=== PATIENT | female | born 1990 | race Caucasian/White ===

== ENCOUNTER 2019-12-22 11:00 | Emergency (ER) | payer OTHER, SELFPAY ==
--- NOTE | 2019-12-22 11:14 | ED.ABDPAIN ---
HPI - Abdominal Pain General Chief Complaint: Allergic Reaction <Enmanuel Pritchard PA-C - Last Filed: 12/22/19 12:20> Stated Complaint: hives <Enmanuel Pritchard PA-C - Last Filed: 12/22/19 12:20> Time Seen by Provider: 12/22/19 11:02 <Enmanuel Pritchard PA-C - Last Filed: 12/22/19 12:20> Source: patient <Enmanuel Pritchard PA-C - Last Filed: 12/22/19 12:20> Mode of arrival: ambulatory <Enmanuel Pritchard PA-C - Last Filed: 12/22/19 12:20> Limitations: no limitations <Enmanuel Pritchard PA-C - Last Filed: 12/22/19 12:20> History of Present Illness HPI narrative: Patient is a 29-year-old female who presents to emergency department for evaluation of hives that is been present for the last 6 days has been taking Zyrtec with minimal improvement notes itching patient denies known exposure believes it could be related to bleach that they were cleaning with at the laundromat patient denies URI symptoms difficulty swallowing or breathing or other complaints and on arrival is resting comfortably in the room in no distress <Enmanuel Pritchard PA-C - Last Filed: 12/22/19 12:20> Related Data Allergies/Adverse Reactions: Allergies Allergy/AdvReac Type Severity Reaction Status Date / Time adhesive tape Allergy Unknown Unknown Verified 12/22/19 11:36 latex Allergy Unknown Unknown Verified 12/22/19 11:36 LAVENDER OIL Allergy Severe SOB Uncoded 04/10/19 16:36 <Enmanuel Pritchard PA-C - Last Filed: 12/22/19 12:20> Review of Systems Review of Systems: All systems reviewed & are unremarkable except as noted in HPI and below <Enmanuel Pritchard PA-C - Last Filed: 12/22/19 12:20> PMF Past Medical History Medical History: Medical History Anxiety Pseudoseizures <Enmanuel Pritchard PA-C - Last Filed: 12/22/19 12:20> Family History Family History: Family History (Updated 05/11/14 @ 07:13 by DOCTOR UNKNOWN) Grandparent Hypertension Family history of elevated blood lipids Carcinoma of colon Diabetes mellitus Mother Cerebrovascular accident <Enmanuel Pritchard PA-C - Last Filed: 12/22/19 12:20> Social History Social History: Social History Smoking status: Never smoker Tobacco type: e-cigarettes Alcohol intake: never Gender identity (if verbalized by the patient): Female <Enmanuel Pritchard PA-C - Last Filed: 12/22/19 12:20> Exam Narrative: Exam Narrative: GENERAL: Well-appearing, well-nourished, and in no acute distress. HEAD: Normocephalic, atraumatic. EYES: PERRLA and EOMI. ENT: Nares clear, no rhinorrhea or epistaxis. Mucous membranes moist. Oropharynx without tonsillar hypertrophy exudate or other lesions. No angioedema in the oropharynx NECK: Supple. No adenopathy or masses. No stridor CHEST: Clear to auscultation. No respiratory distress. No wheezes rales or rhonchi HEART: Regular rate and rhythm. No murmur heard. EXTREMITIES: Normal range of motion. No edema. SKIN: Warm, dry, patient with scattered small hives NEURO: No focal deficits. Alert and oriented x3. PSYCH: Normal mood and affect. <RACHEL Nina Last Filed: 12/22/19 12:20> Course Course Emergency Course: Patient in the room in no distress aware of case findings treatment plan and diagnosis <Enmanuel Pritchard PA-C - Last Filed: 12/22/19 12:20> Vital Signs Vital signs: Vital Signs Temperature 36.4 C L 12/22/19 11:32 Pulse Rate 102 H 12/22/19 11:32 Respiratory Rate 22 H 12/22/19 11:32 Blood Pressure 121/84 12/22/19 11:32 Pulse Oximetry 100 12/22/19 11:32 Temperature 36.4 C L 12/22/19 11:32 Pulse Rate 99 12/22/19 12:27 Respiratory Rate 12 12/22/19 12:27 Blood Pressure 120/68 12/22/19 12:27 Pulse Oximetry 99 12/22/19 12:27 <Enmanuel Pritchard PA-C - Last Filed: 12/22/19 12:20> Vital Signs Temperature 36.4 C
[2019-12-22 11:32] VITALS: BP 121/84; PULSE 102; RESP 22; TEMP 36.4; O2SAT 100
[2019-12-22] MEDS: FAMOTIDINE 20 MG TABLET PO (11:37)
[2019-12-22] MEDS: predniSONE 20 MG TABLET 40 MG PO (11:37)
[2019-12-22 12:27] VITALS: BP 120/68; PULSE 99; RESP 12; O2SAT 99
== END 2019-12-22 12:28 | disposition home or self-care (01) ==
PROVIDERS: Emergency Provider Emergency Medicine
DX: L50.9 Urticaria, unspecified (principal); F17.290 Nicotine dependence, other tobacco product, uncomplicated
CPT/HCPCS: 99283; A9270; J7512

== ENCOUNTER 2020-06-07 10:55 | Emergency (ER) | payer OTHER, SELFPAY ==
--- NOTE | ~2020-06-07 | XR_ITS ---
EXAMINATION: XR wrist RT min 3V EXAM DATE: 06/07/2020 11:28 INDICATION: Initial encounter following injury, with pain of the right wrist. TECHNIQUE: Right wrist frontal, frontal with ulnar deviation, oblique and lateral projections obtain ed and reviewed. There is no prior study for comparison. FINDINGS: Right wrist scapholunate joint space is maintained. There are no acute fractures or disloca tions identified. There is no subcutaneous gas. The soft tissue is unremarkable. There are no rad iopaque foreign bodies. IMPRESSION: 1. Unremarkable XR wrist RT min 3V exam. Reviewed, dictated and finalized at location B.
[2020-06-07 11:01] VITALS: BP 124/61; PULSE 118; RESP 20; TEMP 36.9; O2SAT 97
--- NOTE | 2020-06-07 11:12 | ED.UPPEXIN ---
HPI - Extremity Injury (Upper) General Chief Complaint: Extremity Injury, Upper Stated Complaint: right hand pain Time Seen by Provider: 06/07/20 11:12 Source: patient and RN notes reviewed History of Present Illness HPI narrative: Patient is a 30-year-old female who presents the urgent care with complaints of right wrist pain and into the palm. Patient states that 1 week ago she got angry and slammed her fist on the countertop. Patient states that she has not noticed any swelling but has become more painful in the last couple days. States that she has been using Tylenol and ibuprofen. No other acute complaints. No acute distress noted. Patient aware of the plan of care. Some parts of this dictation were generated by voice recognition software and may contain typographical and/or grammatical inaccuracies. Related Data Home Medications Medication Instructions Recorded Confirmed No Home Medications 06/07/20 06/07/20 Allergies Allergy/AdvReac Type Severity Reaction Status Date / Time adhesive tape Allergy Intermediate Rash Verified 06/07/20 11:15 latex Allergy Intermediate Rash Verified 06/07/20 11:15 lavender (Lavandula Allergy Intermediate Wheezing Verified 06/07/20 11:15 angustifolia) Review of Systems Review of Systems: Narrative: CONSTITUTIONAL: Denies fever, chills, or sweats. EYES: Denies visual changes, redness, or discharge. ENT: Denies rhinorrhea, congestion, sore throat, or otalgia. CARDIOVASCULAR: Denies chest pain, palpitations, or edema. RESPIRATORY: Denies cough or dyspnea. GASTROINTESTINAL: Denies abdominal pain, nausea, vomiting, or diarrhea. GENITOURINARY: Denies dysuria or hematuria. SKIN: Denies rash or itching. MUSCULOSKELETAL: Reports of right wrist/palm pain NEUROLOGIC: Denies headache, numbness, or weakness. All other systems reviewed are negative, except as documented in HPI. [facility] Family History Family History (Updated 05/11/14 @ 07:13 by DOCTOR UNKNOWN) Grandparent Hypertension Family history of elevated blood lipids Carcinoma of colon Diabetes mellitus Mother Cerebrovascular accident Social History Social History Smoking status: Never smoker Tobacco type: e-cigarettes/vaping Alcohol intake: never Gender identity (if verbalized by the patient): Female Comments At the time of my signature, I reviewed and agree with the nursing past medical, surgical, social, and family history. There is no relevant family history pertinent to the patient complaint. Exam Narrative: Exam Narrative: GENERAL: This is a well-nourished, well-developed patient, in no apparent distress. HEAD: normocephalic, atraumatic. EYES: PERRL. Sclera clear/white. Vision is grossly intact. EARS: External ears normal NOSE: External nose normal with no obvious nasal discharge, nares without redness, no rhinorrhea. THROAT: Mucous membranes moist NECK: Neck supple SKIN: warm, intact with no suspicious lesions or rash, good texture and turgor. NEURO: awake, alert, and oriented to person, place and time. There were no obvious focal neurologic abnormalities. EXTREMITIES: Mild to moderate tenderness to the ulnar aspect of the right wrist. Positive strong right radial pulse with capillary refill less than 2 seconds. Mild pain with rotation and flexion of the right wrist. No obvious deformity, ecchymosis or edema noted to the right upper extremity. Patient is right-hand dominant. Course Vital Signs Vital signs: Vital Signs Temperature 98.4 F 06/07/20 11:01 Pulse Rate 118 H 06/07/20 11:01 Respiratory Rate 06/07/20 11:01 Blood Pressure 124/61 06/07/20 11:01 Pulse Oximetry 97 06/07/20 11:01 Temperature 98.4 F 06/07/20 11:01 Pulse Rate 118 H 06/07/20 11:01 Respiratory Rate 06/07/20 11:01 Blood Pressure 124/61 06/07/20 11:01 Pulse Oximetry 97 06/07/20 11:01 Reviewed MDM - Extremity Injury (Upper) MDM Na
== END 2020-06-07 11:44 | disposition home or self-care (01) ==
PROVIDERS: Emergency Provider Nurse Practitioner Family
DX: S60.211A Contusion of right wrist, initial encounter (principal); W22.8XXA Striking against or struck by other objects, initial encounter
CPT/HCPCS: 73110; 99213; G0463

== ENCOUNTER 2021-02-25 12:17 | Emergency (ER) | payer OTHER, SELFPAY ==
[2021-02-25 12:22] VITALS: BP 127/76; PULSE 98; RESP 16; TEMP 37.3; O2SAT 100
--- NOTE | 2021-02-25 12:51 | ED.GENADULT ---
HPI - General Adult General Chief complaint: Skin/Abscess/Foreign Body Stated complaint: left leg red sharmin Time Seen by Provider: 02/25/21 12:44 Source: patient and RN notes reviewed Mode of arrival: ambulatory Limitations: no limitations History of Present Illness HPI narrative: 31-year-old female presents with complaints of redness, warmth, tenderness, and swelling to left leg for the past 2 days. Elvira reports increase redness, swelling, and tenderness with muscle soreness. No treatment. Denies radiation of tenderness, redness, or swelling. No exacerbating factors. Denies open areas or drainage. Denies fever or chills. Denies nausea, vomiting, and abdominal pain. Tolerating po intake well. LMP 2 weeks ago. Remains active. The patient reports she has not been diagnosed with COVID-19. The patient reports she received 2 [employer] COVID-19 vaccines. The patient reports she is not waiting for the results of a COVID-19 lab test. The patient reports she does not have weakness or fatigue. The patient reports she does not have a new or worsening cough or shortness of breath. Denies chest pain. The patient reports she does not have any rhinorrhea, congestion, sore throat, loss of taste or smell, and diarrhea. Denies recent traveling. Denies concerns for COVID-19 or exposures. At this time, the patient is not suspected of having COVID-19. Some parts of this dictation were generated by voice recognition software and may contain typographical and/or grammatical inaccuracies. Related Data Allergies Allergy/AdvReac Type Severity Reaction Status Date / Time adhesive tape Allergy Intermediate Rash Verified 02/25/21 12:35 latex Allergy Intermediate Rash Verified 02/25/21 12:35 lavender (Lavandula Allergy Intermediate Wheezing Verified 02/25/21 12:35 angustifolia) cephalexin AdvReac Intermediate Weakness Verified 02/25/21 12:40 Review of Systems Review of Systems: Narrative: CONSTITUTIONAL: Denies fever, chills, sweats. EYES: Denies visual changes, redness, discharge. ENT: Denies rhinorrhea, congestion, sore throat, otalgia. CARDIOVASCULAR: Denies chest pain, palpitations, edema. RESPIRATORY: Denies dyspnea, wheezing, cough. GASTROINTESTINAL: Denies abdominal pain, nausea, vomiting, diarrhea. GENITOURINARY: Denies dysuria, hematuria, abnormal discharge. SKIN: Complaints of redness, warmth, tenderness, and swelling to left leg with muscle soreness. MUSCULOSKELETAL: Denies acute back pain, joint pain, or myalgia. NEUROLOGIC: Denies numbness or focal weakness. PSYCHIATRIC: Denies anxiety or depression. All systems reviewed & are unremarkable except as noted in HPI and below. PMFSH Past Medical History Medical History (Updated 03/04/21 @ 10:45 by ZAIDA Spear) Anxiety Depression Kidney stones Pseudoseizures Vaginal delivery X4 Surgical History Surgical History (Updated 03/04/21 @ 10:45 by ZAIDA Spear) History of cholecystectomy History of tubal ligation Family History Family History Grandparent Hypertension Family history of elevated blood lipids Carcinoma of colon Diabetes mellitus Mother Cerebrovascular accident Social History Social History (Updated 03/04/21 @ 10:46 by ZAIDA Spear) Smoking status: Never smoker Tobacco type: e-cigarettes/vaping Alcohol intake: current Substance use: current Substance use type: does not use Living arrangements: with family Occupation/Education: unemployed Gender identity (if verbalized by the patient): Female Sexual Orientation (if Verbalized by the Patient): Straight or Heterosexual Comments At time of signature, agree with the nurse past medical, surgical, social, and family history. There is no relevant family history pertinent to the presenting complaint. Exam Narrative: Exam Narrative: GENERAL: This is a well-nourished, well-developed patient, in
== END 2021-02-25 13:00 | disposition home or self-care (01) ==
PROVIDERS: Emergency Provider Nurse Practitioner Family
DX: L03.116 Cellulitis of left lower limb (principal); S80.862A Insect bite (nonvenomous), left lower leg, initial encounter; W57.XXXA Bitten or stung by nonvenomous insect and other nonvenomous arthropods, initial encounter
CPT/HCPCS: 99213; G0463

== ENCOUNTER 2021-04-16 19:37 | Emergency (ER) | payer OTHER, SELFPAY ==
--- NOTE | ~2021-04-16 | XR_ITS ---
EXAMINATION: XR hip LT 2V w AP pelvis DATE: 04/16/2021 20:41 INDICATION: Left hip pain. Fall. TECHNIQUE: An anteroposterior view of the pelvis and 2 views of left hip were obtained. COMPARISON: None. FINDINGS: Bone alignment is normal. No fracture. The hip joint spaces are normal. IMPRESSION: 1. No fracture. Reviewed, dictated and finalized at location A. IMPRESSION: 1. No fracture.
--- NOTE | ~2021-04-16 | XR_ITS ---
EXAMINATION: XR foot LT 2V DATE: 04/16/2021 20:40 INDICATION: Left foot injury and pain. TECHNIQUE: 2 views of left foot were obtained. COMPARISON: Left ankle radiographs 05/23/2019 FINDINGS: Bone alignment is normal. No fracture. Joint spaces are well maintained. There are enthesop hytes at the posterior and plantar aspects of calcaneal tuberosity. IMPRESSION: 1. No fracture. Reviewed, dictated and finalized at location A. IMPRESSION: 1. No fracture.
[2021-04-16 19:39] VITALS: BP 121/87; PULSE 110; RESP 16; TEMP 37; O2SAT 99
--- NOTE | 2021-04-16 21:01 | ED.BACK ---
HPI - Back Pain/Injury General Chief Complaint: Back Pain/Injury Stated Complaint: back pain Time Seen by Provider: 04/16/21 20:19 History of Present Illness HPI Narrative: Patient presents after a mechanical fall a couple days ago. She denies striking her head or any loss of consciousness. She rested at home in bed for the past 2 days her symptoms got worse so she went to come in for evaluation. She is having difficult time walking due to the pain she is given a shot of Toradol in route by EMS and is reporting large improvement in symptoms. She denies any bowel or bladder incontinence she denies any IV drug use she denies any major change in weight Related Data Allergies Allergy/AdvReac Type Severity Reaction Status Date / Time adhesive tape Allergy Intermediate Rash Verified 02/25/21 12:35 latex Allergy Intermediate Rash Verified 02/25/21 12:35 lavender (Lavandula Allergy Intermediate Wheezing Verified 02/25/21 12:35 angustifolia) cephalexin AdvReac Intermediate Weakness Verified 02/25/21 12:40 Review of Systems Review of Systems: CONSTITUTIONAL: Denies fever, chills, or sweats. EYES: Denies visual changes, redness, or discharge. ENT: Denies rhinorrhea, congestion, sore throat, or otalgia. CARDIOVASCULAR: Denies chest pain, palpitations, or edema. RESPIRATORY: Denies cough or dyspnea. GASTROINTESTINAL: Denies abdominal pain, nausea, vomiting, or diarrhea. GENITOURINARY: Denies dysuria or hematuria. SKIN: Denies rash or itching. MUSCULOSKELETAL: Reports low back pain left greater than right reports left hip pain and left toe pain NEUROLOGIC: Denies headache, numbness, dizziness, or weakness. PSYCHIATRIC: Denies anxiety or depression. All systems reviewed & are unremarkable except as noted in HPI and below PMFSH Past Medical History Medical History Anxiety Depression Kidney stones Pseudoseizures Vaginal delivery X4 Surgical History Surgical History (Updated 03/04/21 @ 10:45 by ZAIDA Spear) History of cholecystectomy History of tubal ligation Family History Family History Grandparent Hypertension Family history of elevated blood lipids Carcinoma of colon Diabetes mellitus Mother Cerebrovascular accident Social History Social History (Updated 03/04/21 @ 10:46 by ZAIDA Spear) Smoking status: Never smoker Tobacco type: e-cigarettes/vaping Alcohol intake: current Substance use: current Substance use type: does not use Gender identity (if verbalized by the patient): Female Exam Narrative: GENERAL: Well-appearing, well-nourished, and in no acute distress. HEAD: Normocephalic, atraumatic. EYES: PERRLA and EOMI. ENT: Nares clear, no rhinorrhea or epistaxis. Mucous membranes moist. Oropharynx without tonsillar hypertrophy exudate or other lesions. Bilateral TMs pearly [place] nonbulging NECK: Supple. No JVD or midline neck pain ABDOMEN: Soft, nontender, nondistended, normal active bowel sounds. EXTREMITIES: Normal range of motion. No edema. There is no midline low back pain there is pain along the left paraspinal area from L1-L5 there is mild diffuse pain on the left hip. There is moderate pain on palpation of the third digit on the left foot. There is ecchymosis noted on the left knee there is no obvious deformity there is no open or draining wounds SKIN: Warm, dry, no rash. NEURO: 5 out of 5 strength in bilateral lower extremities with sensation intact to light touch. Alert and oriented x3. PSYCH: Normal mood and affect. Course Reevaluation(s) Reevaluation #1: Patient continues to feel well given her Toradol shot. Reviewed with patient Date: 04/16/21 Time: 21:03 Vital Signs Vital signs: Vital Signs Temperature 37.0 C 04/16/21 19:39 Pulse Rate 110 H 04/16/21 19:39 Respiratory Rate 16 04/16/21 19:39 Blood Pressure 121/87 04/16/21 19:39
== END 2021-04-16 21:30 | disposition home or self-care (01) ==
PROVIDERS: Emergency Provider Emergency Medicine
DX: S39.012A Strain of muscle, fascia and tendon of lower back, initial encounter (principal); S80.02XA Contusion of left knee, initial encounter; W19.XXXA Unspecified fall, initial encounter; F41.9 Anxiety disorder, unspecified; F32.9 Major depressive disorder, single episode, unspecified
CPT/HCPCS: 73502; 73620; 99284

== ENCOUNTER 2021-04-22 19:39 | Emergency (ER) | payer OTHER, SELFPAY ==
--- NOTE | ~2021-04-22 | CT_ITS ---
EXAMINATION: CT abdomen pelvis w con DATE: 04/23/2021 02:27 INDICATION: Left-sided abdominal pain, left flank pain. Nausea, vomiting, diarrhea. TECHNIQUE: Computed tomography (CT) of the abdomen and pelvis was performed with 100 cc Omnipaque 350 intravenous contrast. Automated exposure control and iterative reconstruction technique were employe d. Exam dose: 453.57 mGy-cm total exam DLP. COMPARISON: None FINDINGS: Patchy infiltrates in the lower lung zones involving middle lobe, lingula and both lower lo bes. Heart size is normal. No pericardial or pleural effusion. Status post cholecystectomy. The liver, spleen, pancreas, adrenal glands and kidneys are unremarkable . Normal caliber of the abdominal aorta. No intraperitoneal or retroperitoneal or pelvic mass lesion or adenopathy or ascites. No apparent urinary tract calculus or hydroureteronephrosis. Normal caliber of the abdominal aorta. No intraperitoneal or retroperitoneal or pelvic mass lesion or adenopathy or ascites. Small fat-containing umbilical hernia. The uterus and adnexal areas and urinary bladder are unremarkable. Normal appendix. No bowel obstruction, bowel wall thickening, pneumatosis or intraperitoneal free air . Included skeletal structures are unremarkable. IMPRESSION: Patchy infiltrates in the lower lung zones suggesting bilateral pneumonia Status post cholecystectomy Normal appendix No urinary tract calculus or hydroureteronephrosis Reviewed, dictated and finalized at Location [facility]. Reviewed, dictated and finalized at location A. IMPRESSION: Patchy infiltrates in the lower lung zones suggesting bilateral pn eumonia Status post cholecystectomy Normal appendix No urinary tract calculus or hydroureteronephrosis
--- NOTE | ~2021-04-22 | XR_ITS ---
EXAMINATION: XR chest 2V DATE: 04/23/2021 00:01 INDICATION: Weakness and chest tightness. TECHNIQUE: frontal and lateral views of the chest were obtained. COMPARISON: Chest radiograph dated 06/01/2016 FINDINGS: Subtle opacities in the right mid and bilateral lower lung zones suspicious for pneumonia. No pleural effusion or pneumothorax. The cardiomediastinal silhouette is normal. Visualized bones and soft tiss ues are unremarkable. IMPRESSION: 1. Subtle opacities in the right mid and bilateral lower lung zones suspicious for pneumonia. Reviewed, dictated and finalized at location A.
[2021-04-22 19:49] VITALS: BP 104/80; PULSE 115; RESP 16; TEMP 37.7; O2SAT 97
--- NOTE | 2021-04-22 19:54 | ECG_ITS ---
Measurements Intervals [place] Rate: 124 P: 28 [place]: 140 QRS: 57 QRSD: 86 T: -2 QT: 336 QTc: 483 Interpretive Statements SINUS TACHYCARDIA MINIMAL Q WAVES- ANTEROLAT/INF LEADS NONSPECIFIC T-WAVE ABNORMALITY- INFERIOR LEADS ABNORMAL ECG Electronically Signed On 04-22-2021 20:06:22 CDT by Alistair Carlisle D.O.
[2021-04-22 20:19] LABS: Hematocrit 40.2 % (37.0-47.0); Hemoglobin 13.6 g/dL (12.0-15.0); Immature Granulocyte Absolute 0.01 K/mm3 (0.00-0.031); Immature Granulocyte Percent A 0.3 % (0-0.5); Lymphocytes Percent Auto 24.8 % (18.3-44.2); Mean Corpuscular HGB Conc 33.8 g/dl (32-36); Mean Corpuscular Hemoglobin 29.2 pg (26-34); Mean Corpuscular Volume 86.3 fl (80-100); Mean Platelet Volume 10.6 fl (7.4-10.4); Monocytes Absolute Auto 0.2 K/mm3 (0.1-0.6); Monocytes Percent Auto 6.2 % (2.6-8.5); Neutrophils Absolute Auto 2.2 K/mm3 (1.3-6.7); Neutrophils Percent Auto 68.7 % (45.5-73.1); Platelet Count Result 125 k/mm3 (150-375); Red Blood Count 4.66 M/mm3 (4.2-5.4); Red Cell Distribution Width 12.1 % (11.5-14.5); White Blood Count 3.2 K/mm3 (4.5-10.0)
[2021-04-22 20:27] LABS: Anion Gap 13 mmol/L (8-16); Blood Urea Nitrogen 12 mg/dL (7-17); Calcium 8.9 mg/dL (8.4-10.2); Carbon Dioxide 22 mmol/L (22-30); Chloride 96 mmol/L (98-107); Estimated CRCL calculation 129 ml/min; Estimated Glomerular Filt Rate > 60; Glucose 96 mg/dL (65-110); Potassium 3.4 mmol/L (3.4-5.0); Sodium 131 mmol/L (137-145)
--- NOTE | 2021-04-22 23:57 | ED.GENADULT ---
HPI - General Adult General Chief complaint: Weakness Stated complaint: chest tightness/ back spasms/ passing out Time Seen by Provider: 04/22/21 23:45 Source: patient and RN notes reviewed Mode of arrival: ambulatory Limitations: no limitations History of Present Illness HPI narrative: This is a 31 year old female with history of pseudoseizure, bipolar who presents for evaluation of left flank pain and chest pain. Patient was evaluated here at [facility] on 04/16/21 after a fall on her left side. She states states she was given Toradol in ED and she was discharged with Toradol and cyclobenzaprine. She states the next day she developed left flank pain and chest pain. She reports tightness and pressure on her chest. This pain is constant. She went to [facility] on that day and she states she was told her pain was due to the prescribed medications. Although she states they didn't do anything for her and she states she left without discharge. She reports today she is still having chest pain and weakness. She has back to her back . She reports nausea and emesis x 1. She also reports diarrhea. She has subjective fever and chills. She denies runny nose or sore throat. She is unvaccinated. Related Data Allergies Allergy/AdvReac Type Severity Reaction Status Date / Time adhesive tape Allergy Intermediate Rash Verified 02/25/21 12:35 latex Allergy Intermediate Rash Verified 02/25/21 12:35 lavender (Lavandula Allergy Intermediate Wheezing Verified 02/25/21 12:35 angustifolia) cephalexin AdvReac Intermediate Weakness Verified 02/25/21 12:40 Review of Systems Review of Systems: All systems reviewed & are unremarkable except as noted in HPI and below PMFSH Past Medical History Medical History Anxiety Depression Kidney stones Pseudoseizures Vaginal delivery X4 Surgical History Surgical History History of cholecystectomy History of tubal ligation Family History Family History Grandparent Hypertension Family history of elevated blood lipids Carcinoma of colon Diabetes mellitus Mother Cerebrovascular accident Social History Social History (Updated 03/04/21 @ 10:46 by ZAIDA Spear) Smoking status: Never smoker Tobacco type: e-cigarettes/vaping Alcohol intake: current Substance use: current Substance use type: does not use Gender identity (if verbalized by the patient): Female Exam Const: General: no acute distress and alert Orientation/consciousness: patient oriented x3 Eyes: EOM: EOMs intact bilaterally Chest: Chest palpation & inspection: tenderness Resp: Effort & Inspection: normal respiratory effort and no retractions Auscultation: clear to auscultation bilaterally GI: GI Palp: Yes Soft to palpation, Yes Tenderness to palpation present (GI) (LUQ, LLQ) and No Guarding due to palpation present (GI) Auscultation: normal bowel sounds : General: Yes CVA tenderness bilateral Skin: General skin exam: normal color Rashes: no rashes Neuro: General: patient oriented x3, moves all extremities and CN's II-XI intact bilaterally Psych: Mental Status: mental status grossly normal Affect: normal affect Course Reevaluation(s) Reevaluation #1: PAtient was sleeping with pulse oximetry 96% on room air. I discussed with her lungs on CT shows she likely has covid. Date: 04/23/21 Time: 03:46 Vital Signs Vital signs: Vital Signs Temperature 99.9 F H 04/22/21 19:49 Pulse Rate 115 H 04/22/21 19:49 Respiratory Rate 16 04/22/21 19:49 Blood Pressure 104/80 04/22/21 19:49 Pulse Oximetry 97 04/22/21 19:49 Temperature 99.9 F H 04/22/21 19:49 Pulse Rate 78 04/23/21 04:10 Respiratory Rate 14 04/23/21 04:10 Blood Pressure 128/74 04/23/21 04:10 Pulse Oximetry 97 04/23/21 04:10
[2021-04-23] VITALS (9 sets, daily range): BP systolic 94–128; BP diastolic 58–74; PULSE 78–107; RESP 14–18; O2SAT 93–97
[2021-04-23] MEDS: ONDANSETRON INJ 4 MG/2 ML VIAL IV PUSH (00:23)
[2021-04-23] MEDS: SODIUM CHLORIDE 0.9% IV 1,000 ML 999 ML IV CONT (00:23)
[2021-04-23] MEDS: PANTOPRAZOLE SODIUM IV 40 MG VIAL IV PUSH (00:23)
[2021-04-23 00:45] LABS: INR 0.9; Prothrombin Time 11.8 Seconds (11.1-14.7)
[2021-04-23 00:46] LABS: Partial Thromboplastin Time 32.1 SECONDS (22.3-36.8)
[2021-04-23 00:48] LABS: D Dimer 0.39 ug/mL (<0.48)
[2021-04-23 01:00] LABS: Lactic Acid Reflex 0.8 mmol/L (0.7-2.1)
[2021-04-23 01:02] LABS: Alanine Aminotransferase 34 U/L (4-35); Albumin Level 4.3 g/dL (3.5-5.1); Alkaline Phosphatase 73 U/L (38-126); Aspartate Amino Transferase 44 U/L (14-36); Bilirubin,Total 0.5 mg/dL (0.2-1.3); CRP 5.9 mg/dL (<1.0); Creatine Kinase 59 U/L (30-135); Magnesium 1.9 mg/dL (1.6-2.3)
[2021-04-23 01:12] LABS: Troponin I < 0.012 ng/mL (0.000-0.034)
[2021-04-23 01:39] LABS: Add Urine Microscopic? YES; Amphetamine Screen Urine Negative (Negative); Appearance Urine Clear (Clear); Bacteria Urine Trace /hpf; Barbiturate Screen Urine Negative (Negative); Benzodiazepines Screen Urine Negative (Negative); Bilirubin Urine Negative (Negative); Blood Urine 2+ (Negative); Cannabinoid Screen Urine Negative (Negative); Cocaine Screen Urine Negative (Negative); Color Urine Yellow (Yellow); Glucose Urine UA Negative (Negative); Ketones Urine 2+ mg/dL (Negative); Leukocyte Esterase Ur Negative LEU/UL (Negative); Methadone Screen Urine Negative (Negative); Mucus Urine Heavy /lpf; Nitrate Urine Negative (Negative); Opiate Screen Urine Negative (Negative); Phencyclidine Screen Urine Negative (Negative); Protein Urine 2+ mg/dL (Negative); Squamous Epithelial Cell Urine Few /hpf (Few); Urobilinogen Urine Negative mg/dL (<2.0); WBC Urine 0-3 /hpf
[2021-04-23 01:47] LABS: Specific Grav Ur 1.032 (1.001-1.035)
[2021-04-23] MEDS: DOXYCYCLINE HYCLATE 100 MG TABLET PO (04:08)
[2021-04-23 17:39] LABS: SARS-CoV-2 RNA PCR Positive
== END 2021-04-23 04:10 | disposition home or self-care (01) ==
PROVIDERS: Emergency Medicine; Emergency Provider General Practice
DX: U07.1 COVID-19 (principal); J12.82 Pneumonia due to coronavirus disease 2019; M79.10 Myalgia, unspecified site; Z87.442 Personal history of urinary calculi; F17.290 Nicotine dependence, other tobacco product, uncomplicated
CPT/HCPCS: 36415; 71046; 74177; 80048; 80076; 80307; 81001; 81025; 82550; 83605; 83735; 84484; 85025; 85055; 85380; 85610; 85730; 86140; 93005; 96361; 96374; 96375; 99284; A9270; C9113; C9803; J0131; J2405; J7030; Q9967; U0003; U0005

== ENCOUNTER 2021-06-10 11:15 | Emergency (ER) | payer OTHER, SELFPAY ==
[2021-06-10 11:35] VITALS: BP 116/69; PULSE 100; RESP 18; TEMP 36.9; O2SAT 99
[2021-06-10 11:49] VITALS: BP 116/69; PULSE 100; RESP 18; TEMP 36.9; O2SAT 99
--- NOTE | 2021-06-10 15:03 | ED.SKABFB ---
HPI - Skin/Abscess/Foreign Bdy General Chief complaint: Skin/Abscess/Foreign Body Stated complaint: Skin complaint Time Seen by Provider: 06/10/21 14:53 Source: patient and RN notes reviewed Mode of arrival: ambulatory Limitations: no limitations History of Present Illness HPI narrative: Patient presents today with a 2-day history of cystic acne to the right lower cheek. States it is very painful and red and is growing larger. Patient has applied Prid Salve at home, which has helped bring the area more to the skin surface. Patient was on doxycycline last month for pneumonia. Related Data Allergies Allergy/AdvReac Type Severity Reaction Status Date / Time adhesive tape Allergy Intermediate Rash Verified 06/10/21 11:43 latex Allergy Intermediate Rash Verified 06/10/21 11:43 lavender (Lavandula Allergy Intermediate Wheezing Verified 06/10/21 11:43 angustifolia) cephalexin AdvReac Intermediate Weakness Verified 06/10/21 11:43 Review of Systems Review of Systems: CONSTITUTIONAL: Denies body aches, fever, chills, or sweats. EYES: Denies visual changes, redness, or discharge. ENT: Denies rhinorrhea, congestion, sore throat, or otalgia. CARDIOVASCULAR: Denies chest pain, palpitations, or edema. RESPIRATORY: Denies cough or dyspnea. GASTROINTESTINAL: Denies abdominal pain, nausea, vomiting, or diarrhea. GENITOURINARY: Denies dysuria or hematuria. SKIN: Denies rash, itching. + Redness and swelling to the right lower cheek MUSCULOSKELETAL: Denies back pain, joint pain, or myalgia. NEUROLOGIC: Denies headache, numbness, tingling, or weakness. PSYCH: Denies depression or anxiety. [facility], [facility] Past Medical History Medical History Anxiety Depression Kidney stones Pseudoseizures Vaginal delivery X4 Surgical History Surgical History History of cholecystectomy History of tubal ligation Family History Family History Grandparent Hypertension Family history of elevated blood lipids Carcinoma of colon Diabetes mellitus Mother Cerebrovascular accident Social History Social History (Reviewed 06/11/21 @ 08:09 by Kailey Monterroso, [facility], ) Smoking status: Never smoker Tobacco type: e-cigarettes/vaping Alcohol intake: current Substance use: current Substance use type: does not use Gender identity (if verbalized by the patient): Female Sexual Orientation (if Verbalized by the Patient): Straight or Heterosexual Comments At time of signature, I have reviewed and agree with nursing past medical, surgical, social and family history unless otherwise noted. Please see nursing chart for further information. There is no relevant family history pertinent to the presenting complaint Exam Narrative: GENERAL: Well-appearing, well-nourished, and in no acute distress. HEAD: Normocephalic, atraumatic. EYES: EOMI. No redness or drainage. Conjunctivae normal. ENT: Mucous membranes pink and moist. Nares clear. NECK: Normal AROM. CHEST: No respiratory distress. EXTREMITIES: Normal range of motion. No edema. SKIN: Warm, dry, no rash. Capillary refill normal. Normal skin turgor. 3 to 4 cm area of erythema and induration to the right lower cheek with pinpoint scab in the center. Very tender to palpation. Patient would barely let me touch the area. Unable to assess fluctuance. NEURO: No focal deficits. Alert and oriented x3. Gait steady. PSYCH: Normal affect. No signs of depression or anxiety. Course Vital Signs Vital signs: Vital Signs Temperature 98.4 F 06/10/21 11:35 Pulse Rate 100 06/10/21 11:35 Respiratory Rate 18 06/10/21 11:35 Blood Pressure 116/69 06/10/21 11:35 Pulse Oximetry 99 06/10/21 11:35 Temperature 98.4 F 06/10/21 11:49 Pulse Rate 100 06/10/21 11:49 Respiratory Rate 18 06/10/21 11:49
--- NOTE | 2021-06-10 20:04 | PC.NURSE ---
1140 following vital signs pt asks nurse how long she will be here stating she has a chiropractor appointment at 1230. informed there are several patients for the provider to see in front her. states she will leave at this time and come back after her appointment. observed cheerful in no distress.
--- NOTE | 2021-06-10 20:13 | PC.NURSE ---
1515 pt returned to facility
--- NOTE | 2021-06-10 20:20 | PC.NURSE ---
1200 following triage pt asks how long it will be before provider sees her stating she has a chiropractor appointment at 1230. informed there are several patients in front of her to be seen. states she will leave at this and come back after her appointment.
--- NOTE | 2021-06-10 20:24 | PC.NURSE ---
1445 pt returns to facility, placed in room, no change in status.
== END 2021-06-10 15:15 | disposition home or self-care (01) ==
PROVIDERS: Emergency Provider Nurse Practitioner
DX: L03.211 Cellulitis of face (principal)
CPT/HCPCS: 99213; G0463

== ENCOUNTER 2021-12-18 09:07 | Emergency (ER) | payer OTHER, SELFPAY ==
[2021-12-18 09:11] VITALS: BP 126/84; PULSE 103; RESP 16; TEMP 36.9; O2SAT 98
--- NOTE | 2021-12-18 09:42 | ED.URI ---
HPI - URI/Sore Throat General Chief Complaint: Upper Respiratory Infection Stated Complaint: Headache/Sore Throat/Cough Time Seen by Provider: 12/18/21 09:28 Source: patient and RN notes reviewed Mode of arrival: ambulatory Limitations: no limitations History of Present Illness HPI Narrative: Patient presents today complaining of body aches, headache, cough, congestion, fatigue, chest tightness. Symptoms began yesterday. Denies fever or shortness of breath. Patient has been taking Excedrin and Tylenol Sinus without relief. Patient has been around a friend that tested positive for influenza. Patient has not had a flu shot, but has been vaccinated against COVID-19. MD elicited complaint: cough and nasal congestion Related Data Home Medications Medication Instructions Recorded Confirmed No Home Medications 12/18/21 12/18/21 Allergies Allergy/AdvReac Type Severity Reaction Status Date / Time adhesive tape Allergy Intermediate Rash Verified 12/18/21 09:24 latex Allergy Intermediate Rash Verified 12/18/21 09:24 lavender (Lavandula Allergy Intermediate Wheezing Verified 12/18/21 09:24 angustifolia) cephalexin AdvReac Intermediate Weakness Verified 12/18/21 09:24 STEROIDS AdvReac Severe Agitated Uncoded 12/18/21 09:24 Review of Systems Review of Systems: CONSTITUTIONAL: Denies fever, chills, or sweats.+ Body aches, fatigue EYES: Denies visual changes, redness, or discharge. ENT: Denies rhinorrhea, sore throat, or otalgia.+ Congestion CARDIOVASCULAR: Denies chest pain, palpitations, or edema. RESPIRATORY: Denies dyspnea.+ Cough, chest tightness GASTROINTESTINAL: Denies abdominal pain, nausea, vomiting, or diarrhea. GENITOURINARY: Denies dysuria or hematuria. SKIN: Denies rash, itching, or wounds. MUSCULOSKELETAL: Denies back pain, joint pain, or myalgia. NEUROLOGIC: Denies numbness, tingling, or weakness.+ Headache PSYCH: Denies depression or anxiety. [facility] Past Medical History Medical History Anxiety Depression Kidney stones Pseudoseizures Vaginal delivery X4 Surgical History Surgical History History of cholecystectomy History of tubal ligation Family History Family History Grandparent Hypertension Family history of elevated blood lipids Carcinoma of colon Diabetes mellitus Mother Cerebrovascular accident Social History Social History Smoking status: Never smoker Tobacco type: e-cigarettes/vaping Alcohol intake: current Substance use: current Substance use type: does not use Gender identity (if verbalized by the patient): Female Sexual Orientation (if Verbalized by the Patient): Straight or Heterosexual Comments At time of signature, I have reviewed and agree with nursing past medical, surgical, social and family history unless otherwise noted. Please see nursing chart for further information. There is no relevant family history pertinent to the presenting complaint Exam Narrative: GENERAL: Mildly ill-appearing, well-nourished, and in no acute distress. HEAD: Normocephalic, atraumatic. EYES: EOMI. No redness or drainage. Conjunctivae normal. ENT: Mucous membranes pink and moist. Nares clear. No rhinorrhea. TMs normal bilaterally. Throat normal. Uvula midline. NECK: Normal AROM. Supple. No lymphadenopathy. CHEST: No respiratory distress. Clear to auscultation. HEART: Regular rate and rhythm. No murmur appreciated. Normal peripheral pulses. EXTREMITIES: Normal range of motion. No edema. SKIN: Warm, dry, no rash. Capillary refill normal. Normal skin turgor. NEURO: No focal deficits. Alert and oriented x3. Gait steady. PSYCH: Normal affect. No signs of depression or anxiety. Course Course Level of Care: Express Care Visit
== END 2021-12-18 09:50 | disposition home or self-care (01) ==
PROVIDERS: Emergency Provider Nurse Practitioner
DX: J11.1 Influenza due to unidentified influenza virus with other respiratory manifestations (principal); F17.290 Nicotine dependence, other tobacco product, uncomplicated
CPT/HCPCS: 87804; 99213; G0463

== ENCOUNTER 2022-01-22 14:48 | Emergency (ER) | payer OTHER, SELFPAY ==
--- NOTE | ~2022-01-22 | XR_ITS ---
XR ankle LT min 3V DATE: 01/22/2022 15:08 INDICATION: Inversion injury. Lateral ankle pain. TECHNIQUE: 4 views COMPARISON: None FINDINGS: No fracture or dislocation of the ankle or disruption of the ankle mortise. No periosteal r eaction or bone destruction. IMPRESSION: Negative Reviewed, dictated and finalized at location B. IMPRESSION: Negative
--- NOTE | 2022-01-22 14:55 | ED.LOWEXIN ---
HPI - Extremity Injury (Lower) General Chief Complaint: Extremity Injury, Lower Stated Complaint: Fall Injury/Left Ankle Injury Time Seen by Provider: 01/22/22 14:55 Source: patient, family and RN notes reviewed History of Present Illness HPI Narrative: Patient is a 31-year-old female who presents the urgent care with complaints of left ankle pain and swelling. Patient states that she missed a step and fell onto the concrete, twisting her left ankle. Patient states it happened just at 2 PM prior to arrival. Denies of any use of [id number] medication for pain. No other acute complaints or injuries. No acute distress noted. Patient aware of the plan of care. Some parts of this dictation were generated by voice recognition software and may contain typographical and/or grammatical inaccuracies. Related Data Home Medications Medication Instructions Recorded Confirmed No Home Medications 12/18/21 12/18/21 Allergies Allergy/AdvReac Type Severity Reaction Status Date / Time adhesive tape Allergy Intermediate Rash Verified 01/22/22 14:59 latex Allergy Intermediate Rash Verified 01/22/22 14:59 lavender (Lavandula Allergy Intermediate Wheezing Verified 01/22/22 14:59 angustifolia) cephalexin AdvReac Intermediate Weakness Verified 01/22/22 14:59 STEROIDS AdvReac Severe Agitated Uncoded 01/22/22 14:59 Review of Systems Review of Systems: CONSTITUTIONAL: Denies fever, chills, or sweats. EYES: Denies visual changes, redness, or discharge. ENT: Denies rhinorrhea, congestion, sore throat, or otalgia. CARDIOVASCULAR: Denies chest pain, palpitations, or edema. RESPIRATORY: Denies cough or dyspnea. GASTROINTESTINAL: Denies abdominal pain, nausea, vomiting, or diarrhea. GENITOURINARY: Denies dysuria or hematuria. SKIN: Denies rash or itching. MUSCULOSKELETAL: Reports of left ankle pain and swelling NEUROLOGIC: Denies headache, numbness, or weakness. All other systems reviewed are negative, except as documented in HPI. COUNTS INCLUDE 234 BEDS AT THE [facility] Past Medical History Medical History Anxiety Depression Kidney stones Pseudoseizures Vaginal delivery X4 Surgical History Surgical History History of cholecystectomy History of tubal ligation Family History Family History Grandparent Hypertension Family history of elevated blood lipids Carcinoma of colon Diabetes mellitus Mother Cerebrovascular accident Social History Social History Smoking status: Never smoker Tobacco type: e-cigarettes/vaping Alcohol intake: current Substance use: current Substance use type: does not use Gender identity (if verbalized by the patient): Female Sexual Orientation (if Verbalized by the Patient): Straight or Heterosexual Comments At the time of my signature, I reviewed and agree with the nursing past medical, surgical, social, and family history. There is no relevant family history pertinent to the patient complaint. Exam Narrative: GENERAL: This is a well-nourished, well-developed patient, in no apparent distress. HEAD: normocephalic, atraumatic. EYES: PERRL. Sclera clear/white. Vision is grossly intact. EARS: External ears normal NOSE: External nose normal with no obvious nasal discharge, nares without redness, no rhinorrhea. THROAT: Mucous membranes moist NECK: Neck supple CARDIOVASCULAR: Regular rate and rhythm without murmurs, gallops, or rubs. RESPIRATORY: Clear to auscultation. Breath sounds equal bilaterally. No wheezes, rales, or rhonchi. SKIN: warm, intact with no suspicious lesions or rash, good texture and turgor. NEURO: awake, alert, and oriented to person, place and time. There were no obvious focal neurologic abnormalities. EXTREMITIES: No obvious deformity, ecchymosis, edema or er
[2022-01-22 14:59] VITALS: BP 122/76; PULSE 125; RESP 16; TEMP 37.2; O2SAT 98
--- NOTE | 2022-01-22 15:13 | PC.NURSE ---
PT DECLINED WHEELCHAIR TO RADIOLOGY
== END 2022-01-22 15:41 | disposition home or self-care (01) ==
PROVIDERS: Emergency Provider Nurse Practitioner Family
DX: S93.402A Sprain of unspecified ligament of left ankle, initial encounter (principal); S96.912A Strain of unspecified muscle and tendon at ankle and foot level, left foot, initial encounter; W10.9XXA Fall (on) (from) unspecified stairs and steps, initial encounter; F17.290 Nicotine dependence, other tobacco product, uncomplicated
CPT/HCPCS: 73610; 99213; G0463

== ENCOUNTER 2022-05-23 17:33 | Emergency (ER) | payer OTHER, SELFPAY ==
--- NOTE | ~2022-05-23 | XR_ITS ---
EXAMINATION: XR chest 2V DATE: 05/23/2022 17:45 INDICATION: Chest pain TECHNIQUE: PA and lateral views of the chest were obtained. COMPARISON: Chest radiograph dated 04/22/2021 FINDINGS: The lungs are clear with no focal airspace opacities, pulmonary edema, pleural effusion or pneumothor ax. The cardiomediastinal silhouette is normal. Visualized bones and soft tissues are unremarkable. IMPRESSION: 1. No acute cardiopulmonary disease. Reviewed, dictated and finalized at location A.
--- NOTE | 2022-05-23 17:36 | ECG_ITS ---
Measurements Intervals [place] Rate: 91 P: 17 MD: 153 QRS: 37 QRSD: 79 T: 19 QT: 323 QTc: 399 Interpretive Statements SINUS RHYTHM MINIMAL Q WAVES- INFERIOR LEADS BORDERLINE ECG COMPARED TO ECG 04/22/2021 19:58:23 HEART RATE HAS DECREASED Electronically Signed On 05-23-2022 20:37:38 CDT by Alistair Carlisle D.O.
[2022-05-23 17:48] VITALS: BP 119/103; PULSE 105; RESP 22; TEMP 36.8; O2SAT 99
[2022-05-23 18:12] LABS: Basophils Percent Auto 0.4 % (0.2-1.2); Eosinophils Absolute Auto 0.2 K/mm3 (0-0.3); Eosinophils Percent Auto 2.1 % (0-4.4); Hematocrit 39.1 % (37.0-47.0); Hemoglobin 13.3 g/dL (12.0-15.0); Immature Granulocyte Absolute 0.03 K/mm3 (0.00-0.031); Immature Granulocyte Percent A 0.4 % (0-0.5); Lymphocytes Absolute Auto 2.07 K/mm3 (0.9-3.2); Lymphocytes Percent Auto 28.4 % (18.3-44.2); Mean Corpuscular Hemoglobin 29.9 pg (26-34); Mean Corpuscular Volume 87.9 fl (80-100); Mean Platelet Volume 9.4 fl (7.4-10.4); Monocytes Absolute Auto 0.5 K/mm3 (0.1-0.6); Monocytes Percent Auto 6.2 % (2.6-8.5); Neutrophils Absolute Auto 4.6 K/mm3 (1.3-6.7); Neutrophils Percent Auto 62.5 % (45.5-73.1); Platelet Count Result 263 k/mm3 (150-375); Red Blood Count 4.45 M/mm3 (4.2-5.4); Red Cell Distribution Width 12.3 % (11.5-14.5); White Blood Count 7.3 K/mm3 (4.5-10.0)
[2022-05-23 18:18] LABS: Alanine Aminotransferase 19 U/L (6-35); Albumin Level 4.6 g/dL (3.5-5.1); Alkaline Phosphatase 97 U/L (38-126); Anion Gap 15 mmol/L (8-16); Aspartate Amino Transferase 24 U/L (14-36); Bilirubin,Total 0.2 mg/dL (0.2-1.3); Blood Urea Nitrogen 13 mg/dL (7-17); Carbon Dioxide 21 mmol/L (22-30); Chloride 105 mmol/L (98-107); Estimated CRCL calculation 124 ml/min; Estimated Glomerular Filt Rate > 60; Glucose 116 mg/dL (65-110); INR 0.9; Lipase 82 U/L (23-300); Partial Thromboplastin Time 30.7 SECONDS (22.3-36.8); Potassium 3.8 mmol/L (3.4-5.0); Prothrombin Time 12.2 Seconds (11.1-14.7); Sodium 141 mmol/L (137-145)
[2022-05-23 18:30] LABS: Troponin I < 0.012 ng/mL (0.000-0.034)
--- NOTE | 2022-05-23 19:19 | ED.CHESTPAIN ---
HPI - Chest Pain General Chief Complaint: Chest Pain Stated Complaint: chest pain Time Seen by Provider: 05/23/22 19:00 Source: RN notes reviewed History of Present Illness HPI narrative: Patient presents emergency room from home for chest pain. Patient states pain began approximately 3:30 PM today while she was sitting at a bus stop playing [employer] switch states the pain is located in the left upper chest. Anterior to her shoulder and radiated down her left arm. States the pain was worse with movement and is improving at this time but is still present she states she did feel short of breath like she could not take a deep breath with the symptoms she denies any fevers or chills abdominal pain nausea vomiting or any other symptoms denies any previous history of chest pain states she did take aspirin for the pain Related Data Home Medications Medication Instructions Recorded Confirmed No Home Medications 12/18/21 12/18/21 Allergies Allergy/AdvReac Type Severity Reaction Status Date / Time adhesive tape Allergy Intermediate Rash Verified 01/22/22 14:59 latex Allergy Intermediate Rash Verified 01/22/22 14:59 lavender (Lavandula Allergy Intermediate Wheezing Verified 01/22/22 14:59 angustifolia) cephalexin AdvReac Intermediate Weakness Verified 01/22/22 14:59 STEROIDS AdvReac Severe Agitated Uncoded 01/22/22 14:59 Review of Systems Review of Systems: Gen.: Denies fevers or chills ENT: Denies congestion Respiratory: Reports shortness of breath CV: See HPI GI: Denies abdominal pain nausea, emesis or diarrhea Musculoskeletal: Denies back pain or muscle pain Neuro: Denies numbness, tingling, weakness or focal weakness Skin: Denies rash Except as documented, all other systems reviewed and negative [facility] Past Medical History Medical History Anxiety Depression Kidney stones Pseudoseizures Vaginal delivery X4 Surgical History Surgical History History of cholecystectomy History of tubal ligation Family History Family History Grandparent Hypertension Family history of elevated blood lipids Carcinoma of colon Diabetes mellitus Mother Cerebrovascular accident Social History Social History Smoking status: Never smoker Tobacco type: e-cigarettes/vaping Alcohol intake: current Substance use: current Substance use type: does not use Gender identity (if verbalized by the patient): Female Sexual Orientation (if Verbalized by the Patient): Straight or Heterosexual Exam Narrative: APPEARANCE: No acute distress, nontoxic, resting in bed EYES: EOMI HEENT: Normocephalic, atraumatic, OMM RESPIRATORY: No respiratory distress Clear to auscultation bilaterally with no rhonchi wheezing or rales. CARDIOVASCULAR: Regular rate and rhythm without murmurs rubs or gallops. Tender to palpation of left anterior superior chest pain increased with flexion abduction of the left shoulder greater than 45 degrees as well as full eye motion of the left shoulder with point tenderness ABDOMINAL: Soft, nontender, nondistended, no rebound or guarding MUSCULOSKELETAl: Moves all extremities. No clubbing, cyanosis or edema. NEURO: Awake and alert. Following commands, speech normal, no focal deficits SKIN:: Warm, dry. No rashes lesions or abrasions PSYCHIATRIC: Normal affect/mood, Course Course Emergency Course: Patient states that she has children at home that she has to go care for states that she is no longer able to stay in the emergency department. Patient has chosen to refuse further care. Risks of an incomplete evaluation and treatment were discussed with the patient including potential heart attack, pulmonary embolism, permanent disability cardiopulmonary arrest and were discussed wit
[2022-05-23] MEDS: KETOROLAC 30 MG/ML VIAL (*BKC) IV PUSH (19:23)
[2022-05-23 20:33] LABS: D Dimer 0.29 ug/mL (<0.48)
[2022-05-23 20:45] VITALS: BP 130/90; PULSE 76; RESP 18; O2SAT 99
== END 2022-05-23 20:47 | disposition left against medical advice (07) ==
PROVIDERS: Emergency Medicine; Emergency Provider Emergency Medicine
DX: R07.9 Chest pain, unspecified (principal); Z87.891 Personal history of nicotine dependence
CPT/HCPCS: 36415; 71046; 80053; 83690; 84484; 85025; 85380; 85610; 85730; 93005; 96374; 99284; J1885

== ENCOUNTER 2022-11-05 12:32 | Emergency (ER) | payer OTHER, SELFPAY ==
--- NOTE | 2022-11-05 12:37 | ED.URI ---
HPI - URI/Sore Throat General Chief Complaint: Upper Respiratory Infection Stated Complaint: Sore Throat Source: patient and RN notes reviewed History of Present Illness HPI Narrative: 32-year-old female presents to urgent care with daughter at bedside. Patient states she began having a sore throat this morning. Daughter is also complaining of a sore throat that started yesterday. Patient reports intermittent left ear pain. Denies any fevers, chills, congestion, headache, chest pain, or shortness of breath. Patient states he took some Tylenol cold and flu this morning. Some parts of this dictation were generated by voice recognition software and may contain typographical and/or grammatical inaccuracies. Related Data Home Medications Medication Instructions Recorded Confirmed No Home Medications 12/18/21 12/18/21 Allergies Allergy/AdvReac Type Severity Reaction Status Date / Time adhesive tape Allergy Intermediate Rash Verified 11/05/22 12:52 latex Allergy Intermediate Rash Verified 11/05/22 12:52 lavender (Lavandula Allergy Intermediate Wheezing Verified 11/05/22 12:52 angustifolia) cephalexin AdvReac Intermediate Weakness Verified 11/05/22 12:52 STEROIDS AdvReac Severe Agitated Uncoded 11/05/22 12:52 Review of Systems Review of Systems: CONSTITUTIONAL: Denies fever, chills, or sweats. EYES: Denies visual changes, redness, or discharge. ENT: sore throat CARDIOVASCULAR: Denies chest pain, palpitations, or edema. RESPIRATORY: Denies cough or dyspnea. GASTROINTESTINAL: Denies abdominal pain, nausea, vomiting, or diarrhea. GENITOURINARY: Denies dysuria or hematuria. SKIN: Denies rash or itching. MUSCULOSKELETAL: Denies back pain, joint pain, or myalgia. NEUROLOGIC: Denies headache, numbness, or weakness. [facility] Past Medical History Medical History Anxiety Depression Kidney stones Pseudoseizures Vaginal delivery X4 Surgical History Surgical History History of cholecystectomy History of tubal ligation Family History Family History Grandparent Hypertension Family history of elevated blood lipids Carcinoma of colon Diabetes mellitus Mother Cerebrovascular accident Social History Social History Smoking status: Never smoker Tobacco type: e-cigarettes/vaping Alcohol intake: current Substance use: current Substance use type: does not use Living arrangements: with family Occupation/Education: unemployed Gender identity (if verbalized by the patient): Female Sexual Orientation (if Verbalized by the Patient): Straight or Heterosexual Comments At the time of my signature, I reviewed and agree with the nursing past medical, surgical, social, and family history. There is no relevant family history pertinent to the patient complaint. Exam Narrative: GENERAL: This is a well-nourished, well-developed patient, in no apparent distress. HEAD: normocephalic, atraumatic. EYES: PERRL. Sclera clear/white. Vision is grossly intact. EARS: External ears normal, auditory canals clear and without drainage, TMs normal without perforation. Hearing grossly intact. NOSE: External nose normal with no obvious nasal discharge, nares without redness, no rhinorrhea. THROAT: Mucous membranes moist, posterior pharynx erythemic, bilateral tonsils 1+. NECK: Neck supple, non-tender without lymphadenopathy, masses or thyromegaly. CARDIOVASCULAR: Regular rate. RESPIRATORY: No respiratory distress SKIN: warm, intact with no suspicious lesions or rash, good texture and turgor. NEURO: awake, alert, and oriented to person, place and time. There were no obvious focal neurologic abnormalities. Course Course Level of Care: Express Care Visit Vital Signs Vital signs: Vital Signs Te
[2022-11-05 12:48] VITALS: BP 112/76; PULSE 97; RESP 18; TEMP 37; O2SAT 98
== END 2022-11-05 13:19 | disposition home or self-care (01) ==
PROVIDERS: Emergency Provider Nurse Practitioner Family; PCP Emergency Medicine
DX: J02.9 Acute pharyngitis, unspecified (principal); F17.290 Nicotine dependence, other tobacco product, uncomplicated
CPT/HCPCS: 87081; 87880; 99213; G0463

== ENCOUNTER 2022-11-26 10:03 | Emergency (ER) | payer OTHER, SELFPAY ==
--- NOTE | ~2022-11-26 | XR_ITS ---
EXAMINATION: XR chest 2V DATE: 11/26/2022 11:34 INDICATION: Cough and shortness of breath. TECHNIQUE: Frontal and lateral views of the chest were obtained. COMPARISON: Chest 2 views 05/23/2022 FINDINGS: The chest demonstrates clear lungs without pneumonia, pleural effusion, or pneumothorax. Th e heart size is normal. IMPRESSION: 1. No acute cardiopulmonary disease. Reviewed, dictated and finalized at location A.
[2022-11-26 10:13] VITALS: BP 101/68; PULSE 122; RESP 20; TEMP 37.1; O2SAT 98
--- NOTE | 2022-11-26 11:46 | ED.URI ---
HPI - URI/Sore Throat General Chief Complaint: Upper Respiratory Infection Stated Complaint: Cough/Chest Congestion Time Seen by Provider: 11/26/22 11:30 Source: patient, family, RN notes reviewed and old records reviewed Mode of arrival: ambulatory Limitations: no limitations History of Present Illness HPI Narrative: 32 year old female who presents to [facility] care with complaints of cough, chest congestion,chest soreness, decreased appetite, headache, fever up to 100.4F, some shortness of breath, occasional wheezing for the past 5 days.. Patient reports that she has past history of asthma and pneumonia. Patient states that she has been using her inhaler, taking Excedrin and also took Mucinex for her symptoms. Patient states that she thinks she inhaled some mold from old refrigerator. MD elicited complaint: fever, cough, sore throat and other (chest congestion, headache) Pertinent past history: pneumonia and asthma Onset (ago): day(s) (5) Pain scale (0-10): 8 Able to tolerate fluids by mouth: Yes Treatments prior to arrival: other (Excedrin,Mucinex, inhaler) Related Data Allergies Allergy/AdvReac Type Severity Reaction Status Date / Time adhesive tape Allergy Intermediate Rash Verified 11/26/22 10:58 latex Allergy Intermediate Rash Verified 11/26/22 10:58 lavender (Lavandula Allergy Intermediate Wheezing Verified 11/26/22 10:58 angustifolia) cephalexin AdvReac Intermediate Weakness Verified 11/26/22 10:58 STEROIDS AdvReac Severe Agitated Uncoded 11/26/22 10:58 Review of Systems Review of Systems: CONSTITUTIONAL: Reports malaise, chills, sweats, or fever. EYES: Denies visual changes, redness, or discharge. ENT: Reports rhinorrhea, congestion, sinus pain, some otalgia and sore throat. CARDIOVASCULAR: Denies chest pain, palpitations, or edema. RESPIRATORY: Reports productive cough.?Reports some dyspnea and wheezing GASTROINTESTINAL: Denies abdominal pain, nausea, vomiting, diarrhea SKIN: Denies rash or itching. MUSCULOSKELETAL: Denies myalgia. NEUROLOGIC:Reports headache. All systems reviewed & are unremarkable except as noted in HPI and below PMFSH Past Medical History Medical History (Updated 11/28/22 @ 08:59 by Rianna Mars NP) Anxiety Asthma Depression Kidney stones Pneumonia Pseudoseizures Vaginal delivery X4 Surgical History Surgical History History of cholecystectomy History of tubal ligation Family History Family History Grandparent Hypertension Family history of elevated blood lipids Carcinoma of colon Diabetes mellitus Mother Cerebrovascular accident Social History Social History Smoking status: Never smoker Tobacco type: e-cigarettes/vaping Alcohol intake: current Substance use: current Substance use type: does not use Living arrangements: with family Occupation/Education: unemployed Gender identity (if verbalized by the patient): Female Sexual Orientation (if Verbalized by the Patient): Straight or Heterosexual Comments At time of signature, agree with nursing past medical, surgical, social and family history. There is no relevant family history pertinent to the presenting complaint Exam Narrative: GENERAL: Well-appearing, well-nourished, and in no acute distress. HEAD: Normocephalic EYES: PERRLA, conjunctivae clear ENT: Nares clear, turbinates edematous and erythematous, clear discharge. Mucous membranes moist. TM pearly ragsdale with dull light reflex bilaterally; no tragal tenderness. Oropharynx erythematous without lesions. Tonsils not enlarged and without exudate, no drooling, no hoarseness, no trismus, uvula midline.post nasal discharge NECK: Supple. No lymphadenopathy CHEST: Clear to auscultation, breath sounds equal. No wheezing, rhonchi, rales, or stridor. No respiratory di
== END 2022-11-26 12:10 | disposition home or self-care (01) ==
PROVIDERS: Emergency Provider Registered Nurse
DX: J06.9 Acute upper respiratory infection, unspecified (principal)
CPT/HCPCS: 71046; 87081; 87880; 99213; G0463

== ENCOUNTER 2022-12-28 11:13 | Emergency (ER) | payer OTHER, SELFPAY ==
[2022-12-28 11:18] VITALS: BP 118/69; PULSE 87; RESP 18; TEMP 36.7; O2SAT 98
[2022-12-28 11:27] VITALS: BP 118/69; PULSE 87; RESP 18; TEMP 36.7; O2SAT 98
--- NOTE | 2022-12-28 11:44 | ED.GENADULT ---
HPI - General Adult General Chief complaint: Upper Respiratory Infection Stated complaint: Sore Throat Source: patient Mode of arrival: ambulatory Limitations: no limitations History of Present Illness HPI narrative: Patient presents for evaluation of sore throat for last 4 days. She indicates she had similar symptoms last month at which time she had a negative strep test. She was given azithromycin and steroids. Pt states that her symptoms did improve however she experienced anger while on steroids. No fever, chills, nausea, vomiting, otalgia, respiratory symptoms. No recent sick contacts to her knowledge. She does not smoke. Related Data Allergies Allergy/AdvReac Type Severity Reaction Status Date / Time adhesive tape Allergy Intermediate Rash Verified 12/28/22 11:17 latex Allergy Intermediate Rash Verified 12/28/22 11:17 lavender (Lavandula Allergy Intermediate Wheezing Verified 12/28/22 11:17 angustifolia) cephalexin AdvReac Intermediate Weakness Verified 12/28/22 11:17 STEROIDS AdvReac Severe Agitated Uncoded 12/28/22 11:17 Review of Systems Review of Systems: CONSTITUTIONAL: Denies fever, chills, or sweats. EYES: Denies visual changes, redness, or discharge. ENT: Sore throat. Denies sinus congestion, drainage, and otalgia CARDIOVASCULAR: Denies chest pain, palpitations, or edema. RESPIRATORY: Denies cough or dyspnea. GASTROINTESTINAL: Denies abdominal pain, nausea, vomiting, or diarrhea. GENITOURINARY: Denies dysuria or hematuria. SKIN: Denies rash or itching. MUSCULOSKELETAL: Denies back pain, joint pain, or myalgia. NEUROLOGIC: Denies headache, numbness, dizziness, or weakness. PSYCHIATRIC: Denies anxiety or depression. [facility] Past Medical History Medical History Anxiety Asthma Depression Kidney stones Pneumonia Pseudoseizures Vaginal delivery X4 Surgical History Surgical History History of cholecystectomy History of tubal ligation Family History Family History Grandparent Hypertension Family history of elevated blood lipids Carcinoma of colon Diabetes mellitus Mother Cerebrovascular accident Social History Social History Smoking status: Never smoker Tobacco type: e-cigarettes/vaping Alcohol intake: current Substance use: current Substance use type: does not use Living arrangements: with family Occupation/Education: unemployed Gender identity (if verbalized by the patient): Female Sexual Orientation (if Verbalized by the Patient): Straight or Heterosexual Exam Narrative: GENERAL: Well-appearing, well-nourished, and in no acute distress. HEAD: Normocephalic, atraumatic. EYES: PERRLA and EOMI. ENT: Nares clear, no rhinorrhea or epistaxis. Mucous membranes moist. Bilateral tonsillar enlargement, erythema, and white exudate. Uvula is midline. Bilateral TMs pearly ragsdale nonbulging NECK: Supple. No adenopathy or masses. No carotid bruits or JVD CHEST: Clear to auscultation. No respiratory distress. No wheezes rales or rhonchi HEART: Regular rate and rhythm. No murmur heard. Normal peripheral pulses. ABDOMEN: Soft, nontender, nondistended, normal active bowel sounds. EXTREMITIES: Normal range of motion. No edema. SKIN: Warm, dry, no rash. NEURO: No focal deficits. Alert and oriented x3. PSYCH: Normal mood and affect. Course Course Emergency Course: This is a 32-year-old female who presented for evaluation of sore throat. Rapid strep positive. She did confirm she can take amoxicillin so script sent to pharmacy. Given Decadron while here. Increase hydration. [id number] agents for symptom management. Follow up primary provider. Go to the ER for worsening symptoms. Patient in agreement with plan of care Level of Care:
== END 2022-12-28 12:05 | disposition home or self-care (01) ==
PROVIDERS: Emergency Provider Nurse Practitioner
DX: J02.0 Streptococcal pharyngitis (principal); F17.200 Nicotine dependence, unspecified, uncomplicated; J45.909 Unspecified asthma, uncomplicated
CPT/HCPCS: 87880; 99213; G0463; J1100

== ENCOUNTER 2023-02-07 11:27 | Emergency (ER) | payer OTHER, SELFPAY ==
--- NOTE | 2023-02-07 11:34 | ED.EAR ---
HPI - Ear Problem General Chief complaint: Ear Stated complaint: Ear Pain Source: patient and RN notes reviewed History of Present Illness HPI Narrative: 32 yo F presents to urgent care with 2 kids at side. Pt states she has been having left ear discomfort and pressure for the last 4 days. Pt denies any hearing loss or significant pain. Denies any fevers, chills, congestion, or sore throat. Pt states she has an appt with ENT in a couple weeks. Related Data Home Medications Medication Instructions Recorded Confirmed aripiprazole 2 mg tablet 2 mg PO DAILY 02/07/23 02/07/23 Allergies Allergy/AdvReac Type Severity Reaction Status Date / Time adhesive tape Allergy Intermediate Rash Verified 02/07/23 11:46 latex Allergy Intermediate Rash Verified 02/07/23 11:46 lavender (Lavandula Allergy Intermediate Wheezing Verified 02/07/23 11:46 angustifolia) cephalexin AdvReac Intermediate Weakness Verified 02/07/23 11:46 STEROIDS AdvReac Severe Agitated Uncoded 02/07/23 11:46 Review of Systems Review of Systems: CONSTITUTIONAL: Denies fever, chills, or sweats. EYES: Denies visual changes, redness, or discharge. ENT: left ear pressure and discomfort CARDIOVASCULAR: Denies chest pain, palpitations, or edema. RESPIRATORY: Denies cough or dyspnea. GASTROINTESTINAL: Denies abdominal pain, nausea, vomiting, or diarrhea. GENITOURINARY: Denies dysuria or hematuria. SKIN: Denies rash or itching. MUSCULOSKELETAL: Denies back pain, joint pain, or myalgia. NEUROLOGIC: Denies headache, numbness, or weakness. Pertinent positives per HPI. [facility] Past Medical History Medical History Anxiety Asthma Depression Kidney stones Pneumonia Pseudoseizures Vaginal delivery X4 Surgical History Surgical History History of cholecystectomy History of tubal ligation Family History Family History Grandparent Hypertension Family history of elevated blood lipids Carcinoma of colon Diabetes mellitus Mother Cerebrovascular accident Social History Social History Smoking status: Never smoker Tobacco type: e-cigarettes/vaping Alcohol intake: current Substance use: current Substance use type: does not use Living arrangements: with family Occupation/Education: unemployed Gender identity (if verbalized by the patient): Female Sexual Orientation (if Verbalized by the Patient): Straight or Heterosexual Comments At the time of my signature, I reviewed and agree with the nursing past medical, surgical, social, and family history. There is no relevant family history pertinent to the patient complaint. Exam Narrative: GENERAL: This is a well-nourished, well-developed patient, in no apparent distress. HEAD: normocephalic, atraumatic. EYES: Sclera clear/white. Vision is grossly intact. EARS: External ears normal, auditory canals clear and without drainage, TMs normal without perforation. Hearing grossly intact. NOSE: External nose normal with no obvious nasal discharge, nares without redness, no rhinorrhea. THROAT: Mucous membranes moist, posterior pharynx clear. Tonsils are 2+ bilaterally. no exudate noted. NECK: Neck supple, non-tender without lymphadenopathy, masses or thyromegaly. CARDIOVASCULAR: Regular rate and rhythm without murmurs, gallops, or rubs. RESPIRATORY: Clear to auscultation. Breath sounds equal bilaterally. No wheezes, rales, or rhonchi. SKIN: warm, intact with no suspicious lesions or rash, good texture and turgor. NEURO: awake, alert, and oriented to person, place and time. There were no obvious focal neurologic abnormalities. Course Course Level of Care: Express Care Visit Vital Signs Vital signs: Vital Signs Temperature 98 F 02/07/23 11:36 Pul
[2023-02-07 11:36] VITALS: BP 123/84; PULSE 94; RESP 16; TEMP 36.6; O2SAT 98
== END 2023-02-07 12:05 | disposition home or self-care (01) ==
PROVIDERS: Emergency Provider Nurse Practitioner Family
DX: H92.02 Otalgia, left ear (principal); F17.290 Nicotine dependence, other tobacco product, uncomplicated; J45.909 Unspecified asthma, uncomplicated
CPT/HCPCS: 99213; G0463

== ENCOUNTER 2023-03-20 00:41 | Day surgery (SDC) | payer OTHER, SELFPAY ==
[2023-03-11 14:27] VITALS: BMI 32.5
--- NOTE | 2023-03-11 14:48 | PC.NURSE ---
Report to the Outpatient Waiting Room, entrance under the green pavilion located off [facility], at 0830 on 03-20-23. Planned Procedure Time: 1030. Time changes happen often and if your time is changed the preop area will call you the afternoon before. - You and your visitor will be asked to self-screen and do not enter if you have any COVID symptoms. - A mask is optional within the hospital at this time. Patients may have clear liquids (water, carbonated beverages, clear teas, apple juice) until 3 hours prior to surgery with a maximum of 20 ounces. 0730 - No food from midnight until time of surgery - Infants may have breast milk until 4 hours before surgery, formula 6 hours prior to surgery. - Children will be allowed to drink immediately following surgery. If applicable, please bring a bottle or sippy cup to assist with drinking. Juice, water, soda, and popsicles are readily available. For infants on formula, please bring formula the day of surgery. Pacifiers are allowed. Take the following medications with a SIP of water the morning of surgery: None DO NOT STOP ANY OF YOUR OTHER PRESCRIPTION MEDICATIONS PRIOR TO SURGERY ?EXCEPT THE FOLLOWING Medications to discontinue per physician: Vitamins and supplements Date to take last dose: 03-17-23 Please no make-up, nail yemeni, hairspray, perfume, deodorant, or body powder the day of surgery. No jewelry (including any body piercings) or valuables the day of surgery, leave them at home. Please take a shower or bath the night before, or the morning of, surgery with an antibacterial soap. Wear comfortable, loose fitting clothing. Children are encouraged to wear pajamas. - Jewelry must be removed prior to entering the operating room. Rings and piercings that are not removed may be cut off. - The hospital will not accept responsibility for valuables. - Please leave all valuables, including medications, at home the day of surgery. If you are going home after surgery, a licensed [employer] company driver must drive you home. - NO public transportation without another adult if you receive anesthesia. - We recommend that an adult stay with you for 24 hours following discharge. - We also recommend that you do not drive, make important decision, drink alcoholic beverages, or take any drugs that were not prescribed by your health care provider for at least 24 hours after your discharge time. For Pediatric surgeries, we recommend two adults accompany the child home. Follow any additional instructions given to you from your surgeon. If you or anyone in your household have experienced Covid symptoms in the past week, please notify your surgeon or the nurse liaison at the phone number below for possible testing. Telephone instructions given to Elvira German and asked if any additional questions and then verbalized understanding. Patient advised to call surgeon office or pre surgery nurse liaison [phone] if any additional questions.
--- NOTE | 2023-03-19 12:45 | WPDANESEPPF ---
Anes - Initial Pre Proc Eval Procedure: Operation Date: 03/20/23 10:30 Proposed Procedures p Tonsillectomy And Adenoidectomy - Dl Jim MD Date/Time: 03/19/23 12:45 Surgeon: Dl Jim MD Pre Op Diagnosis: adenoid and tonsil hypertrophy Patient Data Age: 33 Gender: F Height: 1.65 m Weight: 88.9 kg Allergies Allergy/AdvReac Type Severity Reaction Status Date / Time adhesive tape Allergy Intermediate Rash Verified 03/20/23 08:43 latex Allergy Intermediate Rash Verified 03/20/23 08:43 lavender (Lavandula Allergy Intermediate Wheezing Verified 03/20/23 08:43 angustifolia) cephalexin AdvReac Intermediate Weakness Verified 03/20/23 08:43 STEROIDS AdvReac Intermediate Agitated Uncoded 03/20/23 08:43 Home Medications Medication Instructions Recorded Confirmed Type aripiprazole 5 mg tablet (Abilify) 5 mg PO DAILY 02/26/23 03/20/23 History fluticasone propionate 50 1 spray intranasal BID PRN 03/11/23 03/11/23 History mcg/actuation nasal allergies spray,suspension (24 Hour Allergy Relief) Probiomax Sb DF 1 tab-cap PO DAILY 03/20/23 03/20/23 History Patient hx anesthesia problems: none Family hx anesthesia problems: none Results Review: All pre-operative results and documents have been reviewed as part of the pre-operative evaluation. REPLACED BY [facility] Past Medical History Medical History (Updated 03/19/23 @ 12:46 by Wayne Baumann MD) Adenoid hypertrophy Anxiety Asthma Depression Kidney stones Obesity Pneumonia Pseudoseizures Tonsillar hypertrophy Vaginal delivery X4 Surgical History Surgical History History of cholecystectomy History of tubal ligation Family History Family History Grandparent Hypertension Family history of elevated blood lipids Carcinoma of colon Diabetes mellitus Mother Cerebrovascular accident Social History Social History (Updated 02/26/23 @ 09:24 by Yoselin To CMA) Smoking status: Never smoker Tobacco type: e-cigarettes/vaping Second hand tobacco smoke exposure: No Alcohol intake: current Alcohol use details: rarely Substance use: current Substance use type: marijuana Other substance usage details: occasionally takes edibles for back pain Lack of Transportation: No Lack of Food: Never True Current Housing: I Have Housing Concerned About Future Housing: No Difficulty Paying Gas/Electric Bills: No Difficulty Paying for Meds: No Currently Unemployed: No Education: High School Diploma/GED Difficulty w/ Childcare or Family Care: No Living arrangements: with family Occupation/Education: unemployed Gender identity (if verbalized by the patient): Female Sexual Orientation (if Verbalized by the Patient): Straight or Heterosexual Spiritual care concerns: No Anes - Eval Final PreProcedure Day of Procedure 03/19/23 12:45 Patient weight: obese Heart: regular rate and rhythm Lungs: clear to auscultation and normal air movement Airway: Mallampati scale class II Neurological: alert and oriented Last oral intake: >/= 8 hours ASA classification: II Emergent: no Anesthetic plan: proceed Anesthesia type and monitoring: general ETT Results Review: All pre-operative results and documents have been reviewed as part of the pre-operative evaluation. Informed Consent: The patient's anesthetic plan and its attendant risks and benefits were discussed with the patient/family/POA. Questions were solicited and answers provided to the satisfaction of the patient/family/POA.
--- NOTE | 2023-03-19 17:44 | PM.IMHP ---
H&P: HPI History of Present Illness Date/Time: 03/19/23 17:44 Chief Complaint: tonsillar hypertrophy sleep disordered breathing recurrent tonsillitis snoring adenoid hypertrophy Narrative: planned procedure Review of Systems Review of Systems: All systems reviewed & are unremarkable except as noted in HPI and below PMFSH Past Medical History Medical History (Updated 03/19/23 @ 12:46 by Wayne Baumann MD) Adenoid hypertrophy Anxiety Asthma Depression Kidney stones Obesity Pneumonia Pseudoseizures Tonsillar hypertrophy Vaginal delivery X4 Surgical History Surgical History History of cholecystectomy History of tubal ligation Family History Family History Grandparent Hypertension Family history of elevated blood lipids Carcinoma of colon Diabetes mellitus Mother Cerebrovascular accident Social History Social History (Updated 02/26/23 @ 09:24 by Yoselin To CMA) Smoking status: Never smoker Tobacco type: e-cigarettes/vaping Second hand tobacco smoke exposure: No Alcohol intake: current Alcohol use details: rarely Substance use: current Substance use type: marijuana Other substance usage details: occasionally takes edibles for back pain Lack of Transportation: No Lack of Food: Never True Current Housing: I Have Housing Concerned About Future Housing: No Difficulty Paying Gas/Electric Bills: No Difficulty Paying for Meds: No Currently Unemployed: No Education: High School Diploma/GED Difficulty w/ Childcare or Family Care: No Living arrangements: with family Occupation/Education: unemployed Gender identity (if verbalized by the patient): Female Sexual Orientation (if Verbalized by the Patient): Straight or Heterosexual Spiritual care concerns: No Meds Home Medications and Allergies Home Medications Medication Instructions Recorded Confirmed Type aripiprazole 5 mg tablet (Abilify) 5 mg PO DAILY 02/26/23 03/11/23 History fluticasone propionate 50 1 spray intranasal BID PRN 03/11/23 03/11/23 History mcg/actuation nasal allergies spray,suspension (24 Hour Allergy Relief) Allergies Allergy/AdvReac Type Severity Reaction Status Date / Time adhesive tape Allergy Intermediate Rash Verified 03/11/23 14:25 latex Allergy Intermediate Rash Verified 03/11/23 14:25 lavender (Lavandula Allergy Intermediate Wheezing Verified 03/11/23 14:25 angustifolia) cephalexin AdvReac Intermediate Weakness Verified 03/11/23 14:25 STEROIDS AdvReac Intermediate Agitated Uncoded 03/11/23 14:25 Exam Narrative: large tonsils large at adenoids Assessment and Plan Assessment and plan (1) Tonsillar hypertrophy: Code(s): J35.1 - Hypertrophy of tonsils Status: Acute Assessment and Plan: Plan operating room tonsillectomy adenoidectomy.? Risks were discussed including bleeding infection damage to surrounding structures change in swallow change in taste which may be permanent need for time off work need for time off school inherent risks narcotic use damage to any structure above the clavicle by myself damage to any structure during the induction and maintenance of anesthesia.? 3-5% chance risk of bleeding following procedure.? Failure to resolve symptoms if not due to enlarged infected tonsils. (2) Adenoid hypertrophy: Code(s): J35.2 - Hypertrophy of adenoids Status: Acute (3) Dysphagia: Code(s): R13.10 - Dysphagia, unspecified Status: Acute (4) Recurrent tonsillitis: Code(s): J03.91 - Acute recurrent tonsillitis, unspecified Status: Acute (5) Snoring: Code(s): R06.83 - Snoring Status: Acute
[2023-03-20] VITALS (7 sets, daily range): BP systolic 87–132; BP diastolic 52–89; PULSE 78–99; RESP 12–19; TEMP 36.1–36.4; O2SAT 97–100
--- NOTE | 2023-03-20 07:36 | WPDHPUPDATE1 ---
History and Physical Update Update Date/Time: 03/20/23 07:36 History and Physical has been reviewed, including an updated exam of the patient. There are NO changes in the patient's condition. Risks, benefits, and alternatives have been discussed and questions answered. Patient agrees to proceed with procedure.
[2023-03-20] MEDS: ACETAMINOPHEN 500 MG TABLET 1000 MG PO (08:49)
[2023-03-20] MEDS: LACTATED RINGERS 1,000 ML 30 ML IV CONT ×2 (09:10→12:11)
--- NOTE | 2023-03-20 09:25 | SUR.PREOP ---
informed pt delay in procedure.
--- NOTE | 2023-03-20 12:24 | W.PM.PROC2 ---
Procedure Note - Detailed Date of Procedure 03/20/23 Pre-op Diagnosis adenoid and tonsil hypertrophy , recurrent tonsillitis, recurrent adenoiditis Post-op Diagnosis Same Procedure Performed tonsillectomy Surgeon Dl Jim MD Anesthesia General Indications see above Findings no adenoids large endophytic scarred in tonsils excess bleeding from the left side left tonsil larger than right Description of Procedure patient identified consent verified throughout. Patient brought to the operating room. Time-out performed. General anesthesia induced endotracheal tube secured airway. Patient prepped draped position procedure confirmed. Second time-out performed. McIvor mouth gag inserted revealing tonsils described above. Left larger than right. Slightly. There removed in extracapsular plane using Bovie electrocautery setting of 10. Any bleeding was controlled with Bovie suction electrocautery setting of 12. Bilateral procedure. Adenoids then view there were largely absent. In between tonsils McIvor mouth gag was lowered to allow blood flow to return to the tongue. After tonsillectomy was completed the McIvor mouth gag was lowered and reopened to reveal no further bleeding. Patient tolerated the procedure well blood loss about 10 cc. No complications. Care the patient given Anesthesiology. Patient taken to PACU. Estimated Blood Loss 10 Drains No Packing No Pathology Yes Complications No immediate complications Condition Stable Disposition PACU [facility] Billing Surgery - Charge Forward: Surgery Billing
[2023-03-20] MEDS: fentaNYL CITRATE INJ (*CRX) 100 MCG/2 ML VIAL 25 MCG IV PUSH ×4 (12:42→13:06)
== END 2023-03-20 13:58 | disposition home or self-care (01) ==
PROVIDERS: PCP Internal Medicine; Visit Provider Otolaryngology
PROC: (CPT 42826; principal; 2023-03-20 10:30)
DX: J35.1 Hypertrophy of tonsils (principal); R13.10 Dysphagia, unspecified; R06.83 Snoring; F41.9 Anxiety disorder, unspecified; F32.A Depression, unspecified; E66.9 Obesity, unspecified; Z68.32 Body mass index [BMI] 32.0-32.9, adult
CPT/HCPCS: 42826; 88302; A9270; J0330; J1100; J2250; J2405; J2704; J3010; J7120

== ENCOUNTER 2023-07-07 08:02 | Emergency (ER) | payer OTHER, SELFPAY ==
[2023-07-07 08:12] VITALS: BP 122/82; PULSE 104; RESP 18; TEMP 36.3; O2SAT 97
--- NOTE | 2023-07-07 08:29 | ED.GENADULT ---
HPI - General Adult General Chief complaint: Extremity Injury, Lower Stated complaint: Right Foot Injury Source: patient Mode of arrival: ambulatory Limitations: no limitations History of Present Illness HPI narrative: Presents for evaluation of right foot pain since yesterday. She indicates she was wrestling with her fiance in a playful manner the day prior and thinks she was injured in the process. She states pain is sharp, rated 6/10 in severity and worse with movement and weightbearing. No paresthesias. No loss of ROM. She tried taking tylenol for her pain with some improvement thereafter. Related Data Home Medications Medication Instructions Recorded Confirmed aripiprazole 5 mg tablet (Abilify) 5 mg PO DAILY 02/26/23 03/20/23 fluticasone propionate 50 1 spray intranasal BID PRN 03/11/23 03/11/23 mcg/actuation nasal allergies spray,suspension (24 Hour Allergy Relief) Probiomax Sb DF 1 tab-cap PO DAILY 03/20/23 03/20/23 Allergies Allergy/AdvReac Type Severity Reaction Status Date / Time adhesive tape Allergy Intermediate Rash Verified 03/20/23 08:43 latex Allergy Intermediate Rash Verified 03/20/23 08:43 lavender (Lavandula Allergy Intermediate Wheezing Verified 03/20/23 08:43 angustifolia) cephalexin AdvReac Intermediate Weakness Verified 03/20/23 08:43 STEROIDS AdvReac Intermediate Agitated Uncoded 03/20/23 08:43 Review of Systems Review of Systems: CONSTITUTIONAL: Denies fever, chills, or sweats. EYES: Denies visual changes, redness, or discharge. ENT: Denies rhinorrhea, congestion, sore throat, or otalgia. CARDIOVASCULAR: Denies chest pain, palpitations, or edema. RESPIRATORY: Denies cough or dyspnea. GASTROINTESTINAL: Denies abdominal pain, nausea, vomiting, or diarrhea. GENITOURINARY: Denies dysuria or hematuria. SKIN: Denies rash or itching. MUSCULOSKELETAL: Reports pain in right foot NEUROLOGIC: Denies headache, numbness, dizziness, or weakness. PSYCHIATRIC: Denies anxiety or depression. [facility] Past Medical History Medical History Adenoid hypertrophy Anxiety Asthma Depression Kidney stones Obesity Pneumonia Pseudoseizures Tonsillar hypertrophy Vaginal delivery X4 Surgical History Surgical History History of cholecystectomy History of tubal ligation Family History Family History Grandparent Hypertension Family history of elevated blood lipids Carcinoma of colon Diabetes mellitus Mother Cerebrovascular accident Social History Social History Smoking status: Never smoker Tobacco type: e-cigarettes/vaping Second hand tobacco smoke exposure: No Alcohol intake: current Alcohol use details: rarely Substance use: current Substance use type: marijuana Other substance usage details: occasionally takes edibles for back pain Lack of Transportation: No Lack of Food: Never True Current Housing: I Have Housing Concerned About Future Housing: No Difficulty Paying Gas/Electric Bills: No Difficulty Paying for Meds: No Currently Unemployed: No Education: High School Diploma/GED Difficulty w/ Childcare or Family Care: No Living arrangements: with family Occupation/Education: unemployed Gender identity (if verbalized by the patient): Female Sexual Orientation (if Verbalized by the Patient): Straight or Heterosexual Spiritual care concerns: No Exam Narrative: GENERAL: Well-appearing, well-nourished, and in no acute distress. HEAD: Normocephalic, atraumatic. EYES: PERRLA and EOMI. ENT: Nares clear, no rhinorrhea or epistaxis. Mucous membranes moist. Oropharynx without tonsillar hypertrophy exudate or other lesions. Bilateral TMs pearly [place] nonbulging NECK: Supple. No adenopathy or masses. No
== END 2023-07-07 08:39 | disposition home or self-care (01) ==
PROVIDERS: Emergency Provider Nurse Practitioner
DX: S96.911A Strain of unspecified muscle and tendon at ankle and foot level, right foot, initial encounter (principal); X58.XXXA Exposure to other specified factors, initial encounter; Y93.83 Activity, rough housing and horseplay; Y92.9 Unspecified place or not applicable; J45.909 Unspecified asthma, uncomplicated; E66.9 Obesity, unspecified; Z68.31 Body mass index [BMI] 31.0-31.9, adult; F32.A Depression, unspecified
CPT/HCPCS: 73630; 99213; G0463

== ENCOUNTER 2023-07-08 11:38 | Emergency (ER) | payer OTHER, SELFPAY ==
[2023-07-08 11:38] VITALS: BP 130/86; PULSE 107; RESP 20; TEMP 36.1; O2SAT 96
--- NOTE | 2023-07-08 13:21 | ED.BACK ---
HPI - Back Pain/Injury General Chief Complaint: Back Pain/Injury Stated Complaint: back pain Time Seen by Provider: 07/08/23 12:44 History of Present Illness HPI Narrative: 33-year-old female presented emergency department for evaluation of lower back pain that started last night. Patient denies any incident of fall or injury but states she was standing when she had onset of the lower back pain that radiated down her left leg. Patient states she was unable to present to the ED last night, but presented to the ED today by EMS for evaluation. In route patient was treated with 100 mcg of fentanyl and 15 mg of Toradol. Patient states that her pain is resolved at this time. Patient denies any loss of bowel or bladder control. Patient denies any current numbness or weakness but states she does intermittently have pain that radiates down the left leg towards the knee. Patient does report history of back pain. Related Data Home Medications Medication Instructions Recorded Confirmed aripiprazole 5 mg tablet (Abilify) 5 mg PO DAILY 02/26/23 03/20/23 fluticasone propionate 50 1 spray intranasal BID PRN 03/11/23 03/11/23 mcg/actuation nasal allergies spray,suspension (24 Hour Allergy Relief) Probiomax Sb DF 1 tab-cap PO DAILY 03/20/23 03/20/23 Allergies Allergy/AdvReac Type Severity Reaction Status Date / Time adhesive tape Allergy Intermediate Rash Verified 03/20/23 08:43 latex Allergy Intermediate Rash Verified 03/20/23 08:43 lavender (Lavandula Allergy Intermediate Wheezing Verified 03/20/23 08:43 angustifolia) cephalexin AdvReac Intermediate Weakness Verified 03/20/23 08:43 STEROIDS AdvReac Intermediate Agitated Uncoded 03/20/23 08:43 Review of Systems Review of Systems: All systems reviewed & are unremarkable except as noted in HPI and below PMFSH Past Medical History Medical History Adenoid hypertrophy Anxiety Asthma Depression Kidney stones Obesity Pneumonia Pseudoseizures Tonsillar hypertrophy Vaginal delivery X4 Surgical History Surgical History History of cholecystectomy History of tubal ligation Family History Family History Grandparent Hypertension Family history of elevated blood lipids Carcinoma of colon Diabetes mellitus Mother Cerebrovascular accident Social History Social History Smoking status: Never smoker Tobacco type: e-cigarettes/vaping Second hand tobacco smoke exposure: No Alcohol intake: current Alcohol use details: rarely Substance use: current Substance use type: marijuana Other substance usage details: occasionally takes edibles for back pain Lack of Transportation: No Lack of Food: Never True Current Housing: I Have Housing Concerned About Future Housing: No Difficulty Paying Gas/Electric Bills: No Difficulty Paying for Meds: No Currently Unemployed: No Education: High School Diploma/GED Difficulty w/ Childcare or Family Care: No Living arrangements: with family Occupation/Education: unemployed Gender identity (if verbalized by the patient): Female Sexual Orientation (if Verbalized by the Patient): Straight or Heterosexual Spiritual care concerns: No Exam Narrative: APPEARANCE: Well appearing, no pain, no distress, well-nourished. HEAD: normocephalic, atraumatic. EYES: PERRLA/EOMI, conjunctivae clear. NOSE: Normal no drainage NECK: Supple. No adenopathy, no masses. RESPIRATORY: Airway patent, respirations nonlabored. Clear to auscultation bilaterally, no rales, rhonchi, wheezing. CARDIOVASCULAR: Regular rate and rhythm without murmurs rubs or gallops. ABDOMINAL: Soft, nontender, nondistended, normal bowel sounds MUSCULOSKELETAL: Some lumbar tenderness to palpation without d
[2023-07-08 14:12] VITALS: BP 129/78; PULSE 68; RESP 15; O2SAT 99
== END 2023-07-08 14:13 | disposition home or self-care (01) ==
PROVIDERS: Emergency Provider Emergency Medicine; PCP Internal Medicine
DX: M54.42 Lumbago with sciatica, left side (principal); J45.909 Unspecified asthma, uncomplicated; E66.9 Obesity, unspecified; Z68.31 Body mass index [BMI] 31.0-31.9, adult; F32.A Depression, unspecified; F41.9 Anxiety disorder, unspecified; F17.290 Nicotine dependence, other tobacco product, uncomplicated; Z87.01 Personal history of pneumonia (recurrent); Z87.442 Personal history of urinary calculi; Z90.49 Acquired absence of other specified parts of digestive tract
CPT/HCPCS: 99283

== ENCOUNTER 2023-11-18 10:14 | Outpatient (CLI) | payer OTHER, SELFPAY ==
--- NOTE | ~2023-11-18 | XR_ITS ---
Clinical Indication: Syncope PA and lateral views of the chest: Comparison: 11/26/2022 Findings: The lungs are clear, without evidence of focal consolidation or pleural effusion. Cardiome diastinal silhouette is within normal limits. Bones and soft tissues are unremarkable. Impression: Normal chest. Reviewed, dictated and finalized at [facility]. GE ROOM ATTENDANT Impression: Normal chest.
[2023-11-18 11:29] LABS: Free T3 3.54 pg/mL (2.18-3.98); Free T4 Free Thyroxine 0.82 ng/dL (0.76-1.46); NT Pro B Type Natriuretic Pept < 11 pg/mL (0-125); Thyroid Stimulating Hormone 1.11 uIU/mL (0.36-3.74)
== END 2023-11-18 10:15 | disposition home or self-care (01) ==
LOC: CHSLAB 10:18
PROVIDERS: PCP Internal Medicine; Visit Provider Internal Medicine
DX: R00.0 Tachycardia, unspecified (principal); R55 Syncope and collapse
CPT/HCPCS: 36415; 71046; 83880; 84439; 84443; 84481

== ENCOUNTER 2023-11-25 08:28 | Outpatient (CLI) | payer OTHER, SELFPAY ==
--- NOTE | 2023-11-25 | ECHO_ITS ---
Patient Info Name: Elvira German Age: 33 years : 1990 Gender: Female Ht: 65 in Wt: 214 lbs BSA: 2.15 m2 HR: 87 bpm BP: 137 / 93 mmHg Technical Quality: Good Exam Date: 11/25/2023 8:46 AM Exam Location: Echo Lab Patient Status: Outpatient Admit Date: 11/25/2023 Staff Ordering Physician: Kamran Montes MD Curriculum Facilitator: Attending Provider: Kamran Montes MD Exam Type: CA echo doppler color flow Study Info Indications R94.31 - Abnormal electrocardiogram ECG EKG Complete two-dimensional, color flow and Doppler transthoracic echocardiogram is performed. Summary 1. Complete two-dimensional, color flow and Doppler transthoracic echocardiogram is performed. 2. Left ventricular chamber dimension is normal. 3. Left ventricular systolic function is normal, estimated at 60-65%. 4. The left ventricular diastolic function is normal. 5. E/e' 8 is minimally elevated. 6. There is trace pulmonic regurgitation. Left Ventricle E/e' 8 is minimally elevated. Left ventricular chamber dimension is normal. Left ventricular systolic function is normal, estimated at 60-65%. The left ventricular diastolic function is normal. Right Ventricle Right ventricular systolic function is normal and with normal TAPSE 1.9 cm. Right ventricular chamber dimension is normal. Left Atria Left atrial chamber dimension is normal. Right Atria Right atrial chamber dimension is normal. Aortic Valve The aortic valve is trileaflet. There is no aortic valve stenosis. There is no aortic valve regurgitation. Pulmonic Valve There is trace pulmonic regurgitation. Mitral Valve There is no mitral valve stenosis. There is no mitral valve regurgitation. Tricuspid Valve There is no tricuspid valve regurgitation. Pericardium/Pleural There is no pericardial effusion. Inferior Vena Cava Normal inferior vena cava with >50% collapse upon inspiration consistent with normal right atrial pressure, 5 mmHg. Aorta The aortic root size at the sinus of Valsalva is normal. Left Ventricular Outflow Tract Name Value Normal LVOT 2D LVOT Diameter 2.1 cm LVOT Doppler LVOT Peak Gradient 2 mmHg LVOT Mean Gradient 1 mmHg LVOT VTI 17 cm LVOT VTI/AV VTI Ratio 0.7 LVOT Stroke Volume 58 ml LVOT CO 5.0 l/min LVOT CI 2.3 l/min/m2 Pulmonic Valve Name Value Normal PV Doppler PV Peak Gradient 3 mmHg PV Regurgitation Doppler UT Peak End Diastolic Velocity 76 cm/s Mitral Valve Name Value Normal
== END 2023-11-25 08:29 | disposition home or self-care (01) ==
LOC: ANHCARD 08:28
PROVIDERS: PCP Internal Medicine; Visit Provider Internal Medicine
DX: R00.0 Tachycardia, unspecified (principal); R55 Syncope and collapse
CPT/HCPCS: 93306

== ENCOUNTER 2023-11-27 09:10 | Outpatient (CLI) | payer OTHER, SELFPAY ==
--- NOTE | 2023-12-09 15:05 | P.PCNHOL_ITS ---
Holter/Event Monitor Holter/Event Monitor Date of procedure: 11/27/23 Holter/Event Procedure: Event Monitor Indications: Syncope Conclusion: 1. 10 days event monitor between 11/27/23-12/09/23. There are 20 available tr ansmissions for analysis. 2. Underlying rhythm is sinus rhythm. HR range 66-174 bpm; average HR 101 bpm. HR at 174 bpm was at 12/04/23 at 08:14. 3. No premature supraventricular complexes. No supraventricular tachycardia. 4. There are occasional premature ventricular complexes with total burden of <1%. No ventricular tachycardia. 5. No significant pauses greater than 2 seconds. 6. There are 14 episodes of symptoms of fainted, lightheadedness, shortness of breath, dizziness, chest pain, shortness of breath, heart racing which demonstrate sinus tachycardia, HR range 100-136 bpm.
== END 2023-11-27 09:11 | disposition home or self-care (01) ==
LOC: CHSCARD 09:14
PROVIDERS: PCP Internal Medicine; Visit Provider Internal Medicine
DX: R00.0 Tachycardia, unspecified (principal); R55 Syncope and collapse
CPT/HCPCS: 93270

== ENCOUNTER 2023-12-27 13:26 | Outpatient (CLI) | payer OTHER, SELFPAY ==
--- NOTE | ~2023-12-27 | MR_ITS ---
EXAMINATION: MR brain/brain stem wo con DATE: 12/27/2023 14:24 INDICATION: Headache. TECHNIQUE: Magnetic resonance imaging (MRI) of the brain and brainstem was performed without intraven ous contrast. COMPARISON: None. FINDINGS: There is no intracranial hemorrhage, acute infarction, or abnormal intracranial mass lesion . The ventricles are normal in size. The paranasal sinuses are clear. The orbits are normal. The mast oid air cells are normal. IMPRESSION: 1. Normal brain. Reviewed, dictated and finalized at location E. IMPRESSION: 1. Normal brain.
== END 2023-12-27 13:27 | disposition home or self-care (01) ==
LOC: ANHIMG 13:28
PROVIDERS: PCP Internal Medicine; Visit Provider Internal Medicine
DX: R51.9 Headache, unspecified (principal); R40.4 Transient alteration of awareness
CPT/HCPCS: 70551

== ENCOUNTER 2024-12-31 18:30 | Emergency (ER) | payer OTHER, SELFPAY ==
--- NOTE | ~2024-12-31 | XR_ITS ---
XR wrist LT min 3V Ordering provider: Darcy Cunningham NP History: . . Comparison: None FINDINGS: BONES: No acute fracture or dislocation. No definite scaphoid fracture. JOINT SPACES: Well maintained. SOFT TISSUES: Normal. IMPRESSION: No acute osseous abnormality left wrist. Reviewed, dictated and finalized at location A.
--- OUTSIDE RECORDS SUMMARY | 2024-12-31 18:33 | XMS_ITS | Referral Summary ---
Author Organization [facility] Address [address] [place] [address] Care Team Providers Care Cable Spooler Name Role Phone Kamran Montes MD Primary Care Provider [phone] Allergies Active Allergy Reactions Criticality Noted Date Comments Sin Anaphylaxis High 07/01/2018 Latex Hives High 12/25/2011 Lavender (Lavandula Angustifolia) Anaphylaxis High 07/01/2018 Adhesive Rash Medium 11/16/2017 GETS RED, RAISED, AND WARM Medications ketorolac (TORADOL) 10 mg tablet TAKE 1 TABLET BY MOUTH EVERY 6 HOURS FOR 5 DAYS NEEDED FOR PAIN 04/17/2021 Active Social History Tobacco Use Types Packs/Day Years Used Date Smoking Tobacco: Never Smokeless Tobacco: Never Alcohol Use Standard Drinks/Week Comments Not Currently 0 (1 standard drink = 0.6 oz pur e alcohol) Personal Safety Answer Date Recorded Have you ever been in or are you currently in a harmful physical or emotional relationship or is someone making you feel afraid or unsafe? Denies 11/12/2023 Comments No Sex and Gender Information Value Date Recorded Sex Assigned at Not on file Legal Sex Female 8:17 PM CDT Gender Identity Not on file Sexual Orientation Not on file Last Filed Vital Signs Vital Sign Reading Time Taken Comments Blood Pressure 124/81 11/12/2023 9:15 PM TRAFFIC SUPERINTENDENT Pulse 97 11/12/2023 9:15 PM TRAFFIC SUPERINTENDENT Temperature 36.6 C (97.8 F) 11/12/2023 7:10 PM TRAFFIC SUPERINTENDENT Respiratory Rate 15 11/12/2023 9:15 PM TRAFFIC SUPERINTENDENT Oxygen Saturation 100% 11/12/2023 9:15 PM TRAFFIC SUPERINTENDENT Inhaled Oxygen Concentration - - Weight 89.8 kg (198 lb) 11/12/2023 7:10 PM TRAFFIC SUPERINTENDENT Height 165.1 cm (5' 5 ) 04/21/2021 3:46 PM CDT Body Mass Index 32.95 04/21/2021 3:46 PM CDT Plan of Treatment Not on file Insurance [facility] Care Teams Cable Spooler Relationship Specialty Start Date End Date Kamran Montes MD PCP - General Internal Medicine 11/12/23
--- OUTSIDE RECORDS SUMMARY | 2024-12-31 18:33 | XMS_ITS | Clinical Summary ---
Author Organization [facility] Address [address] [place] [address] Phone Care Team Providers Care Highway Engineer Name Role Phone Provider, None Primary Care Provider Unavailabl e Allergies Active Allergy Reactions Criticality Noted Date Comments Lavender Oil Shortness of Breath 08/24/2019 Medications hydrOXYzine (VISTARIL) 25 MG Capsule Take 1 Cap by mouth 3 times daily as needed for Anxiety. 30 Cap 08/24/2019 Active ketorolac (TORADOL) 10 MG Tablet Take 1 Tablet by mouth every 6 hours as needed for Moderate or more severe pain. 20 Tablet 02/12/2023 Active Social History Tobacco Use Types Packs/Day Years Used Date Smoking Tobacco: Never Smokeless Tobacco: Never Alcohol Use Standard Drinks/Week Comments Never 0 (1 standard drink = 0.6 oz pur e alcohol) AUDIT-C Answer Date Recorded Frequency of Alcohol Consumption Never 08/24/2019 Average Number of Drinks Not on file 019 Frequency of Binge Drinking Not on file 08/14 Comments No Sex and Gender Information Value Date Recorded Sex Assigned at Not on file Legal Sex Female 8:30 AM CDT Gender Identity Not on file Sexual Orientation Not on file Last Filed Vital Signs Vital Sign Reading Time Taken Comments Blood Pressure 123/88 02/11/2023 10:07 PM CDT Pulse 107 02/11/2023 10:07 PM CDT Temperature 36.3 C (97.4 F) 02/11/2023 10:07 PM CDT Respiratory Rate 18 02/11/2023 10:07 PM CDT Oxygen Saturation 97% 02/11/2023 10:07 PM CDT Inhaled Oxygen Concentration - - Weight 88.9 kg (196 lb) 02/11/2023 10:07 PM CDT Height 165.1 cm (5' 5 ) 02/11/2023 10:07 PM CDT Body Mass Index 32.62 02/11/2023 10:07 PM CDT Plan of Treatment Health Maintenance Due Date Last Done Comments Hepatitis C Virus (HCV) Screening 1990 Pap Smear 02/25/2012 Cervical Cancer Screening (CCS) 2021 HPV/Cotest 2021 Influenza Immunization (#1) 2024 08/16/2013 SARS-COV-2 Immunization ( season) 2024 07/11/2021, 06/20/2021 Respiratory Syncytial Virus (RSV) Immunization (Adult) (1 - 1-dose 75+ series) 2066 Hepatitis B Immunization Completed 001, 08/14/2000, 06/26/2000 DTaP/Tdap/Td Immunization Discontinued 2012, 03/25/2005, 04/28/1996, Additional history exists TdaP Immunization Completed 08/16/2013 Meningococcal Immunization (ACWY) Aged Out No longer eligible based on patient's age to complete this topic Pneumococcal Immunization Combined Aged Out No longer eligible based on patient's age to complete this topic Rotavirus Immunization Aged Out No lo nger eligible based on patient's age to complete this topic Insurance MEDICAID [employer] Care Teams Highway Engineer Relationship Specialty Start Date End Date Provider, None [place] PCP - General 08/24/19
--- OUTSIDE RECORDS SUMMARY | 2024-12-31 18:33 | XMS_ITS | Clinical Summary ---
Author Organization [facility] Address [address] [place] [address] Care Team Providers Care Senior Reservoir Engineer Name Role Phone Kamran Montes MD Primary Care Provider [phone] Allergies Active Allergy Reactions Criticality Noted Date Comments Sin Anaphylaxis High 07/01/2018 Latex Hives High 12/25/2011 Lavender (Lavandula Angustifolia) Anaphylaxis High 07/01/2018 Adhesive Rash Medium 11/16/2017 GETS RED, RAISED, AND WARM Medications ketorolac (TORADOL) 10 mg tablet TAKE 1 TABLET BY MOUTH EVERY 6 HOURS FOR 5 DAYS NEEDED FOR PAIN 04/17/2021 Active Medical History Medical History Date Comments Pseudoseizures Social History Tobacco Use Types Packs/Day Years [...] on file Sexual Orientation Not on file Obstetrics History Last Filed Vital Signs Vital Sign Reading Time Taken Comments Blood Pressure 124/81 11/12/2023 9:15 PM ONCOLOGY REP Pulse 97 11/12/2023 9:15 PM ONCOLOGY REP Temperature 36.6 C (97.8 F) 11/12/2023 7:10 PM ONCOLOGY REP Respiratory Rate 15 11/12/2023 9:15 PM ONCOLOGY REP Oxygen Saturation 100% 11/12/2023 9:15 PM ONCOLOGY REP Inhaled Oxygen Concentration - - Weight 89.8 kg (198 lb) 11/12/2023 7:10 PM ONCOLOGY REP Height 165.1 cm (5' 5 ) 04/21/2021 3:46 PM CDT Body Mass Index 32.95 04/21/2021 3:46 PM CDT Plan of Treatment Health Maintenance Due Date Last Done Comments Cervical Cancer Screening 1990 Depression Screening 1990 Hepatitis C Screening 1990 Varicella Vaccines (1 of 2 - 13+ 2-dose series) 02/25/2004 Regular Well Visit/Exam 18-64 2009 DTaP/Tdap/Td Vaccine (6 - Td or Tdap) 08/16/2023 08/16/2013, 03/25/2005, 04/28/1996, Additional history exists Covid-19 Vaccine ( season) 2024 07/11/2021, 06/20/2021 Influenza Vaccine (#1) 2024 08/16/2013 Hepatitis B Screening Completed 01/12/2001 , 08/14/2000, 06/26/2000 HPV Vaccines Aged Out No longer eligi ble based on patient's age to complete this topic Pneumococcal vaccine <65 Aged Out No longer eligible based on patient's age to complete this topic Insurance [facility] Care Teams Senior Reservoir Engineer Relationship Specialty Start Date End Date Kamran Montes MD PCP - General Internal Medicine 11/12/23
[2024-12-31 18:34] VITALS: BP 130/88; PULSE 91; RESP 20; TEMP 36.5; O2SAT 99
--- NOTE | 2024-12-31 19:01 | ED_ITS ---
HPI - Extremity Injury (Upper) General Chief Complaint: Extremity Injury, Upper Stated Complaint: Left Wrist Injury Time Seen by Provider: 12/31/24 18:52 Source: patient and RN notes reviewed Mode of arrival: ambulatory Limitations: no limitations History of Present Illness HPI narrative: 34-year-old female presents with concern of for left wrist pain. Reports 2 days ago she bent it backwards and felt a pop. She reports she has been using ice and Iftikhar wrap and ibuprofen. MD complaint: injury to: left and wrist Related Data Home Medications ?Medication ?Instructions ?Recorded ?Confirmed ?Last Taken ?Type aripiprazole 5 mg tablet (Abilify) 5 mg PO DAILY 02/26/23 03/20/23 03/18/23 History propranolol 60 mg capsule,24 mg PO 12/31/24 Unknown History hr,extended release Allergies Allergy/AdvReac Type Severity Reaction Status Date / Time adhesive tape Allergy Intermediate Rash Verified 12/31/24 18:39 latex Allergy Intermediate Rash Verified 12/31/24 18:39 lavender (Lavandula Allergy Intermediate Wheezing Verified 12/31/24 18:39 angustifolia) cephalexin AdvReac Intermediate Weakness Verified 12/31/24 18:39 STEROIDS AdvReac Intermediate Agitated Uncoded 12/31/24 18:39 Review of Systems Review of Systems: CONSTITUTIONAL: Denies malaise, chills, sweats, or fever. SKIN: Denies rash or itching, open skin, laceration, abrasion, redness, warmth MUSCULOSKELETAL: Reports left wrist pain and swelling NEUROLOGIC: Denies numbness, weakness All systems reviewed & are unremarkable except as noted in HPI and below PMFSH Past Medical History Medical History Adenoid hypertrophy Anxiety Asthma Depression Kidney stones Obesity Pneumonia Pseudoseizures Tonsillar hypertrophy Vaginal delivery X4 Surgical History Surgical History History of cholecystectomy History of tubal ligation Family History Family History Grandparent Hypertension Family history of elevated blood lipids Carcinoma of colon Diabetes mellitus Mother Cerebrovascular accident Social History Social History Smoking status: Never smoker Tobacco type: e-cigarettes/vaping Second hand tobacco smoke exposure: No Alcohol intake: current Alcohol use details: rarely Substance use: current Substance use type: marijuana Other substance usage details: occasionally takes edibles for back pain Lack of Transportation: No Lack of Food: Never True Current Housing: I Have Housing Concerned About Future Housing: No Difficulty Paying Gas/Electric Bills: No Difficulty Paying for Meds: No Currently Unemployed: No Education: High School Diploma/GED Difficulty w/ Childcare or Family Care: No Living arrangements: with family Occupation/Education: unemployed Gender identity (if verbalized by the patient): Female Sexual Orientation (if Verbalized by the Patient): Straight or Heterosexual Spiritual care concerns: No Comments At time of signature, agree with nursing past medical, surgical, social and family history. There is no relevant family history pertinent to the presenting complaint Exam Narrative: GENERAL: Well-appearing, well-nourished, and in no acute distress. HEAD: Normocephalic, atraumatic. EYES: PERRLA, conjunctivae clear NECK: Supple. CHEST: Speaks in full sentences. No respiratory distress. HEART: Regular rate and rhythm. Normal and equal peripheral pulses. EXTREMITIES: Left wrist, hand, digits have grossly normal strength and sensation, grossly normal range of motion. No edema or ecchymosis. 5/5 strength with digit flexion and extension. Normal sensation with sensitivity to light chari ch and pain. General wrist tenderness without point tenderness. No open wounds, no skin tenting, no devitalized tissue or atrophy, no trophic changes, no obvious deformity, alignment normal, nearby joints and structures intact. Distal pulses palpable and equal bilaterally, skin warm, dry, pink. Capillary refill less than 3 seconds. SKIN: Warm, dry, no rash. NEURO: Alert and oriented x3. PSYCH: Normal mood and affect Course Course Emergency Course: Patient is aware of diagnosis, understands and agrees to treatment plan. Anticipatory guidance given. Patient agrees to follow-up as directed and is aware of reasons to seek care at the emergency department. Portions of this record may have been created with voice recognition software Level of Care: Express Care Visit Vital Signs Vital signs: Vital Signs Temperature 97.7 F 12/31/24 18:34 Pulse Rate 91 12/31/24 18:34 Respiratory Rate 20 12/31/24 18:34 Blood Pressure 130/88 12/31/24 18:34 Pulse Oximetry 99 12/31/24 18:34 Oxygen Delivery Room Air 12/31/24 18:34 Temperature 97.7 F 12/31/24 18:34 Pulse Rate 91 12/31/24 18:34 Respiratory Rate 20 12/31/24 18:34 Blood Pressure 130/88 12/31/24 18:34 Pulse Oximetry 99 12/31/24 18:34 Oxygen Delivery Room Air 12/31/24 18:34 Reviewed. Critical Care Time Critical Care Time Critical Care Time: No Discharge Plan Discharge Clinical Impression: Sprain and strain of wrist Patient Disposition: Home Condition: Stable Instructions: Wrist Sprain (ED) Additional Instructions: Avoid activities that cause pain until the pain subsides. Ice to the area 20-30 minutes 4-6 times a day Elevate above heart Elastic wrap as directed for comfort for the next 5-7 days Tylenol for lesser pain Ibuprofen regularly for the next 2-3 days for the inflammation Follow up with your primary care provider if the condition is not improving within 1 week. If the condition worsens with numbness, tingling, decrease sensation with weakness seek treatment in the emergency room immediately. Patient Language: Bahamian Prescriptions: No Action propranolol 60 mg capsule,extended release 24 hr PO aripiprazole [Abilify] 5 mg tablet 5 mg PO DAILY Rx Instructions: patient takes HS Follow-up/Referrals: Kamran Montes MD [Primary Care Provider] - Time of Disposition: 19:02
== END 2024-12-31 19:04 | disposition home or self-care (01) ==
PROVIDERS: Emergency Provider Nurse Practitioner; PCP Internal Medicine
DX: S63.502A Unspecified sprain of left wrist, initial encounter (principal); S66.912A Strain of unspecified muscle, fascia and tendon at wrist and hand level, left hand, initial encounter; X50.0XXA Overexertion from strenuous movement or load, initial encounter; J45.909 Unspecified asthma, uncomplicated; E66.9 Obesity, unspecified; Z68.34 Body mass index [BMI] 34.0-34.9, adult; F32.A Depression, unspecified; F12.90 Cannabis use, unspecified, uncomplicated
CPT/HCPCS: 73110; 99213; G0463

== ENCOUNTER 2025-01-16 08:31 | Outpatient (CLI) | payer OTHER, SELFPAY ==
--- NOTE | ~2025-01-16 | XR_ITS ---
3 VIEWS LUMBAR SPINE Ordering provider: Kamran Montes MD History: . Back pain CHRONIC,MIKAELA LEG PAIN . Comparison: None. FINDINGS: VERTEBRAL BODIES: No visible fracture or subluxation. DISK SPACES: Normal. SOFT TISSUES: Normal. IMPRESSION: No acute osseous abnormality lumbar spine. Reviewed, dictated and finalized at location A.
--- OUTSIDE RECORDS SUMMARY | 2025-01-16 08:48 | XMS_ITS | Clinical Summary ---
Author Organization [facility] Address [address] [place] [address] Care Team Providers Care Benefits Administrator Name Role Phone Kamran Montes MD Primary Care Provider [phone] Allergies Active Allergy Reactions Criticality Noted Date [...] Comments Blood Pressure 124/81 11/12/2023 9:15 PM BATT MACHINE OPERATOR Pulse 97 11/12/2023 9:15 PM BATT MACHINE OPERATOR Temperature 36.6 C (97.8 F) 11/12/2023 7:10 PM BATT MACHINE OPERATOR Respiratory Rate 15 11/12/2023 9:15 PM BATT MACHINE OPERATOR Oxygen Saturation 100% 11/12/2023 9:15 PM BATT MACHINE OPERATOR Inhaled Oxygen Concentration - - Weight 89.8 kg (198 lb) 11/12/2023 7:10 PM BATT MACHINE OPERATOR Height 165.1 cm (5' 5 ) 04/21/2021 [...] patient's age to complete this topic Insurance [facility] Care Teams Benefits Administrator Relationship Specialty Start Date End Date Kamran Montes MD PCP - General Internal Medicine 11/12/23
--- OUTSIDE RECORDS SUMMARY | 2025-01-16 08:48 | XMS_ITS | Referral Summary ---
Author Organization [facility] Address [address] [place] [address] Care Team Providers Care Magazine Worker Name Role Phone Kamran Montes MD Primary Care Provider [phone] Allergies Active Allergy Reactions Criticality Noted Date [...] Comments Blood Pressure 124/81 11/12/2023 9:15 PM INSPECTOR CIRCUITRY NEGATIVE Pulse 97 11/12/2023 9:15 PM INSPECTOR CIRCUITRY NEGATIVE Temperature 36.6 C (97.8 F) 11/12/2023 7:10 PM INSPECTOR CIRCUITRY NEGATIVE Respiratory Rate 15 11/12/2023 9:15 PM INSPECTOR CIRCUITRY NEGATIVE Oxygen Saturation 100% 11/12/2023 9:15 PM INSPECTOR CIRCUITRY NEGATIVE Inhaled Oxygen Concentration - - Weight 89.8 kg (198 lb) 11/12/2023 7:10 PM INSPECTOR CIRCUITRY NEGATIVE Height 165.1 cm (5' 5 ) 04/21/2021 3:46 PM CDT Body Mass Index 32.95 04/21/2021 3:46 PM CDT Plan of Treatment Not on file Insurance [facility] Care Teams Magazine Worker Relationship Specialty Start Date End Date Kamran Montes MD PCP - General Internal Medicine 11/12/23
--- OUTSIDE RECORDS SUMMARY | 2025-01-16 08:48 | XMS_ITS | Clinical Summary ---
Author Organization [facility] Address [address] [place] [address] Phone Care Team Providers Care Drift Miner Name Role Phone Provider, None Primary Care [...] Cervical Cancer Screening (CCS) 2021 HPV/Cotest 2021 SARS-COV-2 Immunization ( season) 2024 07/11/2021, 06/20/2021 Influenza Immunization (Season Ended) 2025 08/16/2013 Respiratory Syncytial Virus (RSV) Immunization (Adult) (1 [...] age to complete this topic Insurance [employer] Care Teams Drift Miner Relationship Specialty Start Date End Date Provider, None [place] PCP - General 08/24/19
[2025-01-16 09:00] LABS: Hematocrit 41.6 % (35.0-49.0); Hemoglobin 13.7 g/dL (12.0-15.0); Mean Corpuscular HGB Conc 32.9 g/dL (32-36); Mean Corpuscular Hemoglobin 29.5 pg (27.0-31.0); Mean Corpuscular Volume 89.7 fL (78.0-102.0); Mean Platelet Volume 9.2 fl (9.2-11.8); Platelet Count Result 330 K/mm3 (150-420); Red Blood Count 4.64 M/mm3 (4.20-5.40); White Blood Count 5.8 K/mm3 (4.8-10.8)
[2025-01-16 09:02] LABS: Bilirubin Urine Negative (Negative); Blood Urine Trace-intact (Negative); Color Urine Yellow (Yellow); Glucose Urine UA Negative (Negative); Ketones Urine Negative (Negative); Leukocyte Esterase Ur Negative (Negative); Nitrate Urine Negative (Negative); Protein Urine Negative (Negative); Specific Grav Ur >= 1.030 (1.010-1.020); Urobilinogen Urine 0.2 mg/dL (0.2-1.0)
[2025-01-16 09:05] LABS: Add Urine Microscopic? YES; Appearance Urine Sl Cloudy (Clear)
[2025-01-16 09:13] LABS: Bacteria Urine Trace /hpf; Squamous Epithelial Cell Urine Moderate /hpf (Few); WBC Urine 0-3 /hpf (0-3)
[2025-01-16 09:14] LABS: Mucus Urine Heavy /lpf
[2025-01-16 09:53] LABS: Alanine Aminotransferase 29 U/L (14-59); Albumin Level 3.8 g/dL (3.4-5.0); Alkaline Phosphatase 105 U/L (46-116); Anion Gap 10 mmol/L (4-12); Aspartate Amino Transferase 19 U/L (15-37); Bilirubin,Total 0.4 mg/dL (0.00-1.00); Blood Urea Nitrogen 7 mg/dL (7-18); CRP < 0.5 mg/dL (0.0-0.9); Calcium 9.3 mg/dL (8.5-10.1); Carbon Dioxide 27 mmol/L (21-32); Chloride 100 mmol/L (98-108); Cholesterol 205 mg/dL (0-200); Estimated Glomerular Filt Rate > 60; Glucose 98 mg/dL (70-99); HDL Direct 41 mg/dL (40-60); LDL Cholesterol Calculated 114 mg/dL (<130); Osmolality Calculated 282 mOsm/kg (285-295); Potassium 4.4 mmol/L (3.5-5.1); Sodium 137 mmol/L (136-145); Total Protein 7.4 g/dL (6.4-8.2); Triglycerides 252 mg/dL (0-150)
== END 2025-01-16 08:32 | disposition home or self-care (01) ==
LOC: CHSLAB 08:33
PROVIDERS: PCP Internal Medicine; Visit Provider Internal Medicine
DX: Z00.00 Encounter for general adult medical examination without abnormal findings (principal); F39 Unspecified mood [affective] disorder; M54.50 Low back pain, unspecified
CPT/HCPCS: 36415; 72100; 80053; 80061; 81001; 84443; 85027; 86140